=== PATIENT | male | born 1990 | race Caucasian/White ===

== ENCOUNTER 2019-07-02 14:53 | Emergency (ER) | payer MEDICAID ==
[~2019-07-02] VITALS: Ht 187 cm; Wt 77.6 kg
[~2019-07-02 14:53] MED LIST: ACET-1697 PO; ADAL10SY SQ; AMX500CIP PO; ASACOL PR; AZAT50TA16 PO; CANASA EXT; CIME200T15 PO; CLIN45GE5 EXT; CLIN60GE TP; CPR500T PO; CYCL10TA9 PO; DICY10CA26 PO; FAMO40TA39 PO; FISH OIL; HUMIRA; HYDR-2890 PO; HYDR-34 PO; HYOS0.1217 PO; IRON; MELA10CA PO; MELA1TAB11 PO; MELA1TAB27 PO; MESA1.2T PO; MESA250C PO; MESA800T PO; METR500T PO; MINO100C6 PO; MINO50CA2 PO; MSL400TEC PO; MTR500T PO; MULT-963 PO; MULT-974 PO; NF-CLIN1% TOP; NF-ESOM40C PO; ONDA-42 SL; ONDA8TAB13 PO; ONDA8TAB9 PO; OXYC10TA7 PO; OXYC15TA73 PO; OXYC15TA79 PO; OXYC1TAB25 PO; OXYC20TA14 PO; OXYC20TA63 PO; OXYC40TA49 PO; PNT40TEC PO; PRD10T PO; PRD20T PO; PRM25T PO; PROM12.565 RC; QUET100T32 PO; QUET50TA PO; ST JOHNS WORT; SULF1TAB7 PO; TAZORAC EXT; TAZORAC TOP; TUMERIC; [UNRECOGNIZED DRUG - OTHER]
--- NOTE | 2019-07-02 15:19 | NUR ---
PATIENT REFUSING IV, BLOOD DRAW AND FURTHER TREATMENT AT THIS TIME. PHYSICIAN NOTIFIED.
--- NOTE | 2019-07-02 15:19 | ED Abdominal Pain ---
General Stated Complaint: RECTAL BLEEDING History of Present Illness Date Seen by Provider: Jul 02, 2019 Time Seen by Provider: 15:09 Initial Comments 29-year-old male presents with "rectal bleeding" unsure of how long he has actually been having rectal bleeding. Patient himself does not provide any of the history of present illness or we'll review of systems because he "into much pain" patient has a history of ulcerative colitis since had his colon removed. Patient has a ostomy bag in the right lower quadrant. However reports that he is having rectal bleeding. Patient has chronic abdominal pain. Patient's mom states that she thinks he has a "pelvic abscess." Patient is also been having "sexual hallucinations" however this was not elaborated on. Patient has not seen his physician for at least 2 years. Mom reports that he started living back with her 2 weeks ago and that he has been having all these issues for at least the last 2 weeks and maybe longer. Allergies and Home Medications Allergies Coded Allergies: prednisone (Unverified Allergy, Severe, SWELLING SOA, 06/19/14) methylprednisolone (Verified Allergy, Mild, 07/06/14) levofloxacin (Verified Allergy, Unknown, 07/06/14) ADDED-07/06/14 morphine (Unverified Adverse Reaction, Intermediate, HEADACHE, 06/19/14) Home Medications Acetaminophen 500 Mg Tablet, 1,000 MG PO TID PRN for PAIN, (Reported) take 2 (500 mg) tablets Cimetidine 200 Mg Tablet, 200 MG PO BID PRN for stomach upset, (Reported) Clindamycin Phos 60 Ml Lotion, 1 APPLIC TOP BID, (Reported) Mesalamine 250 Mg Capsule.er, 500 MG PO BID, (Reported) take 2 (250 mg) tablets Multivitamin 1 Each Tablet, 1 EACH PO DAILY, (Reported) Ondansetron Hcl 8 Mg/Tab Tab.rapdis, 8 MG PO Q4H PRN for NAUSEA/VOMITING, (Reported) Oxycodone HCl 10 Mg Tablet, 10 MG PO BID, (Reported) Oxycodone HCl 15 Mg Tab.er.12h, 30 MG PO BID, (Reported) Pyridoxine/Melatonin 1 Tab Tablet, 3 MG PO HS, (Reported) Quetiapine Fumarate 100 Mg Tablet, 100 MG PO HS, (Reported) Patient Home Medication List Home Medication List Reviewed: Yes Review of Systems Review of Systems Constitutional: see HPI EENTM: No Symptoms Reported Respiratory: Denies Cough Cardiovascular: Denies Chest Pain Gastrointestinal: See HPI Musculoskeletal: no symptoms reported Psychiatric/Neurological: See HPI Past Sfkknun-Twsdww-Mlbyne Hx Past Med/Social Hx: Reviewed Nursing Past Med/Soc Hx Immunizations Up To Date Tetanus Booster (TDap): More than 5yrs Date of Influenza Vaccine: May 25, 2014 Seasonal Allergies Seasonal Allergies: No Past Medical History Abdominal, Appendectomy, Bowel Surgery, Orthopedic Reproductive Disorders: No Sexually Transmitted Disease: No HIV/AIDS: No Crohns Disease Loss of Vision: Denies Hearing Impairment: Denies Sleep Difficulties Adverse Reaction/Blood Tranf: No Family Medical History Family history: Arthritis 03 MOTHER (fibra myalgia) Family history: Cardiovascular disease 03 FATHER (heart mirmur) Family history: Diabetes mellitus 09 BROTHER (brother has really low & high blood sugars) History of - respiratory disease 03 MOTHER (emphasemia) Heart Disease, COPD, Diabetes Physical Exam Vital Signs Vital Signs - First Documented 07/02/19 15:05 Pulse 98 Resp 18 B/P (MAP) 129/102 (111) Pulse Ox 93 Capillary Refill : Height/Weight/BMI Height: 6'1" Weight: 165lbs. 7.0oz. 74.193690rl; 21.77 BMI Method:Stated General Appearance: no apparent distress Respiratory: chest non-tender, lungs clear, normal breath sounds Cardiovascular: normal peripheral pulses, regular rate, rhythm Gastrointestinal: other (patient with an ostomy bag in the right lower quadrant, tenderness to palpation in bilateral lower quadrant, patient refusing rectal exam) Neurologic/Psychiatric: eap counselor II-XII nml as tested, no motor/sensory deficits, normal mood/affect, oriented x 3 Skin: warm/dry Focused Exam Lactate Level 07/02/19 15:30: Lactic Acid Level 1.03 Lactic Acid Level Laboratory Tests Test 07/02/19 15:30 Lactic Acid Level 1.03 MMOL/L (0.50-2.00) Progress/Results/Core Measures Results/Orders Lab Results Laboratory Tests Test 07/02/19 15:30 Range/Units White Blood Count 5.7 4.3-11.0 10^3/uL Red Blood Count 6.01 H 4.35-5.85 10^6/uL Hemoglobin 16.3 13.3-17.7 G/DL Hematocrit 47 40-54 % Mean Corpuscular Volume 79 L 80-99 FL Mean Corpuscular Hemoglobin 27 25-34 PG Mean Corpuscular Hemoglobin Concent 35 32-36 G/DL Red Cell Distribution Width 15.5 H 10.0-14.5 % Platelet Count 305 130-400 10^3/uL Mean Platelet Volume 11.2 H 7.4-10.4 FL Neutrophils (%) (Auto) 58 42-75 % Lymphocytes (%) (Auto) 31 12-44 % Monocytes (%) (Auto) 10 0-12 % Eosinophils (%) (Auto) 1 0-10 % Basophils (%) (Auto) 1 0-10 % Neutrophils # (Auto) 3.3 1.8-7.8 X 10^3 Lymphocytes # (Auto) 1.8 1.0-4.0 X 10^3 Monocytes # (Auto) 0.5 0.0-1.0 X 10^3 Eosinophils # (Auto) 0.0 0.0-0.3 10^3/uL Basophils # (Auto) 0.0 0.0-0.1 10^3/uL Erythrocyte Sedimentation Rate 12 0-15 MM/HR Prothrombin Time 13.7 12.2-14.7 SEC INR Comment 1.0 0.8-1.4 Sodium Level 142 135-145 MMOL/L Potassium Level 3.9 3.6-5.0 MMOL/L Chloride Level 107 98-107 MMOL/L Carbon Dioxide Level 23 21-32 MMOL/L Anion Gap 12 5-14 MMOL/L Blood Urea Nitrogen 17 7-18 MG/DL Creatinine 1.13 0.60-1.30 MG/DL Estimat Glomerular Filtration Rate > 60 BUN/Creatinine Ratio 15 Glucose Level 92 70-105 MG/DL Lactic Acid Level 1.03 0.50-2.00 MMOL/L Calcium Level 10.0 8.5-10.1 MG/DL Corrected Calcium 8.5-10.1 MG/DL Total Bilirubin 1.6 H 0.1-1.0 MG/DL Aspartate Amino Transf (AST/SGOT) 17 5-34 U/L Alanine Aminotransferase (ALT/SGPT) 13 0-55 U/L Alkaline Phosphatase 76 40-136 U/L C-Reactive Protein High Sensitivity 0.05 0.00-0.50 MG/DL Total Protein 7.9 6.4-8.2 GM/DL Albumin 4.8 H 3.2-4.5 GM/DL My Orders Orders - HAYLEY ROBINS Nimco DO Acute Abd Series (07/02/19 ) Cbc With Automated Diff (07/02/19 15:10) Comprehensive Metabolic Panel (07/02/19 15:10) Hs C Reactive Protein (07/02/19 15:10) Erythrocyte Sedimentation Rate (07/02/19 15:10) Drug Screen Stat (Urine) (07/02/19 15:10) Lactic Acid Analyzer (07/02/19 15:10) Protime With Inr (07/02/19 15:10) Ua Culture If Indicated (07/02/19 15:10) Ct Abdomen/Pelvis W (07/02/19 16:31) Ketorolac Injection (Toradol Injection) (07/02/19 16:45) Iohexol Injection (Omnipaque 350 Mg/Ml 1 (07/02/19 16:45) Received Contrast (Hold Metformin- Contr (07/02/19 16:45) Sodium Chloride Flush (Catheter Flush Sy (07/02/19 16:45) Ns (Ivpb) (Sodium Chloride 0.9% Ivpb Bag (07/02/19 16:45) Medications Given in ED Current Medications Medications Dose Ordered Sig/Laila Route Start Time Stop Time Status Last Admin Dose Admin Iohexol 100 ml ONCE ONCE IV 07/02/19 16:45 07/02/19 16:46 DC 07/02/19 17:01 88 ML Ketorolac Tromethamine 15 mg ONCE ONCE IVP 07/02/19 16:45 07/02/19 16:46 DC 07/02/19 16:42 15 MG Sodium Chloride 10 ml NEEDED PRN IV 07/02/19 16:45 07/02/19 17:01 10 ML Sodium Chloride 100 ml ONCE ONCE IV 07/02/19 16:45 07/02/19 16:46 DC 07/02/19 17:01 80 ML Vital Signs/I&O 07/02/19 15:05 Pulse 98 Resp 18 B/P (MAP) 129/102 (111) Pulse Ox 93 Progress Progress Note : Time: 17:25 Progress Note Patient refused rectal exam, patient also refused to give us a urine sample. Patient has no acute findings on CT exam, x-ray or labs. Patient will need to follow-up with his primary care provider for further evaluation along with any medication needed for his chronic pain or his symptoms. Patient is stable and di scharged home in stable condition Departure Impression Primary Impression: Chronic abdominal pain Disposition: HOME, SELF-CARE Condition: Stable Departure-Patient Inst. Referrals: YEYO CONTRERAS DO (PCP/Family) Primary Care Physician Patient Instructions: Chronic Pain Add. Discharge Instructions: Follow-up with your primary care physician for further evaluation and continuation of care HAYLEY ROBINS DO Jul 02, 2019 15:19 POS
[2019-07-02 15:42] LABS: BASOPHILS % (AUTO) 1 % (0-10); EOSINOPHILS % (AUTO) 1 % (0-10); HEMATOCRIT 47 % (40-54); HEMOGLOBIN 16.3 G/DL (13.3-17.7); LYMPHOCYTES # (AUTO) 1.8 X 10^3 (1.0-4.0); LYMPHOCYTES % (AUTO) 31 % (12-44); MEAN CORPUSCULAR HEMOGLOBIN 27 PG (25-34); MEAN CORPUSCULAR HGB CONC 35 G/DL (32-36); MEAN CORPUSCULAR VOLUME 79 FL (80-99); MEAN PLATELET VOLUME 11.2 FL (7.4-10.4); MONOCYTES # (AUTO) 0.5 X 10^3 (0.0-1.0); MONOCYTES % (AUTO) 10 % (0-12); NEUTROPHILS # (AUTO) 3.3 X 10^3 (1.8-7.8); NEUTROPHILS % (AUTO) 58 % (42-75); PLATELET COUNT 305 10^3/uL (130-400); RED CELL DISTRIBUTION WIDTH 15.5 % (10.0-14.5); WHITE BLOOD COUNT 5.7 10^3/uL (4.3-11.0)
[2019-07-02 16:02] LABS: PROTHROMBIN TIME PATIENT 13.7 SEC (12.2-14.7)
[2019-07-02 16:14] LABS: ALANINE AMINOTRANSFERASE 13 U/L (0-55); ALBUMIN 4.8 GM/DL (3.2-4.5); ALKALINE PHOSPHATASE 76 U/L (40-136); BILIRUBIN,TOTAL 1.6 MG/DL (0.1-1.0); BUN/CREATININE RATIO 15; CARBON DIOXIDE 23 MMOL/L (21-32); CHLORIDE 107 MMOL/L (98-107); CREATININE SERUM 1.13 MG/DL (0.60-1.30); GFR ESTIMATED > 60; GLUCOSE 92 MG/DL (70-105); POTASSIUM 3.9 MMOL/L (3.6-5.0); SODIUM 142 MMOL/L (135-145); TOTAL PROTEIN 7.9 GM/DL (6.4-8.2)
--- NOTE | 2019-07-02 16:24 | Diagnostic Imaging Report ---
INDICATION: Rectal bleeding. Abdominal series performed in the routine fashion and compared to 11/13/2015. Frontal chest obtained with supine and upright abdominal films. Heart and mediastinal silhouette are normal in appearance. Lungs are clear. There is no pneumothorax or pleural fluid. There is no free intraperitoneal air on the upright view. Spinal stimulator device is in place with leads overlying the T11 through L1 levels. Abdominal bowel gas pattern is unremarkable. There is an ostomy in the right lower quadrant. There are phleboliths in the pelvis. IMPRESSION: No sign of free air or bowel obstruction. No acute process in the chest. Dictated by: Dictated on workstation # [id number]
[2019-07-02 16:31] LABS: ERYTHROCYTE SEDIMENTATION RATE 12 MM/HR (0-15)
[2019-07-02] MEDS ORDERED: HOLD METFORMIN - RECEIVED CONTRAST 20 ML VIAL IV SCH (16:45)
[2019-07-02] MEDS ORDERED: KETOROLAC 15 MG/ML VIAL IVP ONE (16:45)
[2019-07-02] MEDS ORDERED: NS 100 ML (IVPB) BAG IV ONE (16:45)
[2019-07-02] MEDS ORDERED: IOHEXOL 350 MG/ML 100 ML (OMNIPAQUE 350) VIAL IV ONE (16:45)
[2019-07-02] MEDS ORDERED: CATHETER FLUSH 10 ML SYR IV PRN (16:45)
--- NOTE | 2019-07-02 17:18 | Diagnostic Imaging Report ---
PROCEDURE: CT abdomen and pelvis with contrast. TECHNIQUE: Multiple contiguous axial images were obtained through the abdomen and pelvis after administration of intravenous contrast. Auto Exposure Controls were utilized during the CT exam to meet ALARA standards for radiation dose reduction. INDICATION: Difficulty urinating. Groin pain. No history of cancer. COMPARISON: 11/13/2015 FINDINGS: The heart is unremarkable. The included lung bases are clear. Stable colectomy changes are seen with ostomy in the right hemiabdomen. A few nondilated fluid-filled loops of small bowel are seen in the left hemiabdomen. There is bowel wall thickening of the rectal stump. No free fluid or free air is seen in the abdomen and pelvis. The liver, spleen, pancreas, adrenal glands, and kidneys demonstrate no acute abnormalities. There is no pathologically enlarged mesenteric or retroperitoneal adenopathy. The osseous structures are age-appropriate. Spinal cord stimulator is noted. The urinary bladder is nondistended and has an unremarkable appearance. There is no free air, loculated collection, or adenopathy in the pelvis. IMPRESSION: 1. Nondilated fluid-filled loops of small bowel in the left lower quadrant, which may represent enteritis. 2. Postsurgical changes of colectomy and ostomy in the right hemiabdomen. There is mild bowel wall thickening in the rectal stump, which may be reactive. Recommend correlation with physical exam. No free fluid or free air is seen. 3. Nondilated urinary bladder. No findings to suggest cystitis. Dictated by: Dictated on workstation # [id number]
[2019-07-02 17:30] VITALS: BP 129/102
== END 2019-07-02 17:40 | disposition home or self-care (01) ==
LOC: EDUNIT# 14:53 → ER 14:54
DX: G89.29 Other chronic pain (principal); R10.31 Right lower quadrant pain; R10.32 Left lower quadrant pain; Z88.1 Allergy status to other antibiotic agents; Z88.5 Allergy status to narcotic agent; Z88.8 Allergy status to other drugs, medicaments and biological substances; Z90.49 Acquired absence of other specified parts of digestive tract; Z87.19 Personal history of other diseases of the digestive system; Z82.49 Family history of ischemic heart disease and other diseases of the circulatory system
CPT/HCPCS: 36415; 74022; 74177; 80053; 83605; 85025; 85610; 85652; 86141

== ENCOUNTER 2019-12-12 08:50 | Inpatient (IN) | payer MEDICAID ==
[~2019-12-12] VITALS: Ht 185.5 cm; Wt 90.5 kg
--- OUTSIDE RECORDS SUMMARY | 2019-12-12 08:55 | XMS REPORT | Clinical Summary ---
Author Author [facility] Organization [facility] Address Unknown Phone Unavailable Care Team Providers Care Chief Controller Station Name Role Phone Doctor, Miscellaneous Unavailable Unavailable John Paiz MD Unavailable Gladys Mclaughlin RN Unavailable Unavailable Selene Armas DO Unavailable Angelito West DO Unavailable Holden Barcenas MD Unavailable Melissa Weinstein RN Unavailable Unavailable Sharmaine Hammer ENTRY LEVEL DRAFTER-JAVA PROGRAMMER ANALYST Unavailable [phone] Job Hedrick RN Unavailable Unavailable Gayle Patel MD Unavailable Zo Lezama Unavailable Unavailable Veena Howe DO Unavailable Nelly Antonio MD Unavailable Catarino Elizabeth MD Unavailable Unavailable Nicky Gao RN Unavailable Antoni Baumann MD Unavailable [phone] Carlyn Israel DO PCP Soham West RN Unavailable Unavailable Manuel Waite MD Unavailable Serenity Sofia Unavailable Unavailable Source Comments Some departments are not documenting in the electronic medical record. If you d o not see the information that you expected, contact Release of Information in [facility] Information Management department at [phone] for further assistan ce in locating additional records.[facility] Allergies Comments Active Allergy Reactions Severity Noted Date Iron Dextran ANAPHYLAXIS High 06/23/2014 Redness and soreness to iv site with administration Levofloxacin RASH 07/07/2014 Patient tolerates hydrocodone and oxycodone. Patient has also tolerated hydromorphone IV and PO Morphine HEADACHE Low 12/22/2012 Prednisone SHORTNESS OF High 02/06/2014 BREATH, STOMACH UPSET, EDEMA SOB, abdominal pain, swelling Methylprednisolone Sodium SEE COMMENTS 07/07/2014 Succ Medications End Date Status Medication Sig Dispensed Refills Start Date Active tazorotene (TAZORAC) 0.05 Apply to 0 % topical cream affected area at bedtime daily. Active vitamins, multiple cap Take 1 Cap by 0 mouth daily. Active melatonin 3 mg tab Take 3 mg by 0 mouth at bedtime daily. Active QUEtiapine (SEROQUEL) 100 Take 1 Tab by 14 Tab 0 mg tablet mouth at 5 bedtime daily. Active oxycodone(+) (DAZIDOX) 20 Take 10 mg by 0 mg tablet mouth every 4 hours as needed pt says taking oxycodone 10 mg tid and oxycontin 30mg bid Active adalimumab(+) (HUMIRA Inject 160 mg 6 Syringe 0 PEN) 40 mg/0.8 mL (4 pens) on 5 injection penIndications: day 1, then Crohn's disease with 80 mg (day fistula, unspecified 15). gastrointestinal tract location (HCC) Active adalimumab(+) (HUMIRA Inject 40 mg 2 Syringe 2 PEN) 40 mg/0.8 mL into area(s) 6 injection penIndications: as directed Crohn's disease with every 14 fistula, unspecified days. gastrointestinal tract location (HCC) Active ondansetron (ZOFRAN ODT) TAKE ONE 30 Tab 1 0 8 mg rapid dissolve TABLET BY 6 tablet MOUTH EVERY 8 HOURS NEEDED FOR NAUSEA Active azaTHIOprine (IMURAN) 50 TAKE 3 TABS 90 Tab 2 0 mg tablet BY MOUTH 7 DAILY. Active Ostomy Supplies Use 1 each as 99 each 11 03/09/20 1 miscIndications: Crohn's directed as 9 colitis, unspecified Needed. 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 Ulcerative colitis 12/24/2012 Abdominal pain, other specified site 12/22/2012 Encounters Care Team Description Date Type Specialty Monalisa Jimenes 10/22/2019 Documentation Oncology from Last 3 Months Immunizations Name Administration Dates Next Due Flu Vaccine Quadrivalent 07/07/2014 =>3 Yo (Preservative Free) Flu Vaccine Trivalent =>3 05/09/2015 Yo (Preservative Free) Pneumococcal Vaccine 05/09/2015 (23-Leora Adult) Family History Medical History Relation Name Comments Arthritis-rheumatoid Maternal Aunt Cancer Maternal Aunt Seizures Maternal Aunt Diabetes Maternal Grandfather Heart Failure Maternal Grandfather Hypertension Maternal Grandfather Stroke Maternal Grandfather Cancer Maternal Grandmother Asthma Mother Fibromyalgia Mother High Cholesterol Mother Relation Name Status Comments Maternal Aunt Maternal Grandfather Maternal Grandmother Mother Social History Date Tobacco Use Types Packs/Day Years Used Never Smoker Smokeless Tobacco: Never Used Drinks/Week oz/Week Comments Alcohol Use No Sex Assigned at Date Recorded Not on file Industry Job Start Date Occupation Not on file Not on file Not on file Travel End Travel History Travel Start No recent travel history available. Last Filed Vital Signs Reading Time Taken Comments Vital Sign 150/93 02/21/2017 10:57 AM CDT Blood Pressure 117 02/21/2017 10:57 AM CDT Pulse 36.7 C (98 F) 02/21/2017 10:57 AM CDT Temperature 16 02/21/2017 10:57 AM CDT Respiratory Rate 98% 02/21/2017 10:57 AM CDT Oxygen Saturation - - Inhaled Oxygen Concentration 90 kg (198 lb 6.4 oz) 02/21/2017 10:57 AM CDT Weight 186.7 cm (6' 1.5") 02/21/2017 10:57 AM CDT Height 25.82 02/21/2017 10:57 AM CDT Body Mass Index Plan of Treatment Health Maintenance Due Date Last Done Comments DTAP/TDAP VACCINES (1 - 2006 Tdap) PHYSICAL (COMPREHENSIVE) 2006 EXAM INFLUENZA VACCINE 03/25/2020 05/09/2015, 07/07/2014 HEPATITIS C SCREENING Completed 12/30/2012 HIV SCREENING Completed 02/06/2014 Results Not on filefrom Last 3 Months Additional Health Concerns Resolved Time Infection Noted Time ESBL 08/26/2014 10:06 AM 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 08/08/2014 6:51 PM Full Code 08/08/2014 4:11 PM Provider has discussed Code Status No, more discussi on w/Patient or Family? needed 07/13/2014 6:50 PM Full Code 07/07/2014 2:40 AM Provider has discussed Code Status Yes w/Patient or Family? 07/07/2014 2:40 AM Full Code 07/07/2014 2:19 AM Provider has discussed Code Status No, more discussi on w/Patient or Family? needed 06/24/2014 7:54 PM Full Code 06/20/2014 9:36 PM Provider has discussed Code Status Yes w/Patient or Family?
--- OUTSIDE RECORDS SUMMARY | 2019-12-12 08:55 | XMS REPORT | Encounter Summary ---
Author Author [facility] Organization [facility] Address Unknown Phone Unavailable Care Team Providers Care Spray Cementer Name Role Phone Doctor, Miscellaneous Unavailable Unavailable John Paiz MD Unavailable Gladys Mclaughlin RN Unavailable Unavailable Selene Armas DO Unavailable Angelito West DO Unavailable Holden Barcenas MD Unavailable Melissa Weinstein RN Unavailable Unavailable Sharmaine Hammer WRINGER MACHINE OPERATOR-OUTPATIENT DIETITIAN Unavailable Job Hedrick RN Unavailable Unavailable Gayle Patel MD Unavailable Zo Lezama Unavailable Unavailable Veena Howe DO Unavailable Nelly Antonio MD Unavailable Catarino Elizabeth MD Unavailable Unavailable Nicky Gao RN Unavailable Antoni Baumann MD Unavailable [phone] Carlyn Israel DO PCP Soham West RN Unavailable Unavailable Manuel Waite MD Unavailable Serenity Sofia Unavailable Unavailable Reason for Visit * Reason Comments General Question mom calling w concern Encounter Details Care Team Description Date Type Department Angelito West DO [address] [place] [address] General Question (mom calling w concern) 07/01/2019 Telephone [facility] [place] [address] Social History Date Tobacco Use Types Packs/Day Years Used Never Smoker Smokeless Tobacco: Never Used Drinks/Week oz/Week Comments Alcohol Use No Sex Assigned at Date Recorded Not on file Industry Job Start Date Occupation Not on file Not on file Not on file Travel End Travel History Travel Start No recent travel history available. documented as of this encounter Functional Status Date of Assessment Functional Status Response 07/13/2014 Does the patient have a hearing impairment: No 07/13/2014 Does the patient have a visual impairment: No 07/13/2014 Does the patient have impaired ambulation: No 07/13/2014 Does the patient have an activity of daily living No (ADL) impairment: 07/13/2014 Does the patient have an instrumental activity of No daily living (IADL) impairment: Date of Assessment Cognitive Status Response 07/13/2014 Does the patient have a cognitive impairment: No documented as of this encounter Miscellaneous Notes * Telephone Encounter - Tatiana Franklin RN - 07/01/2019 4:04 PM WARP PREPARER This pt mom called today, her cell is [phone]. She said Ferny has not bee n back to see Dr. West since 01/2017. She said he is bleeding out of his rect um and is hallucinating and is afraid he has an infection. She does not know if he still has [place] Medicaid or any coverage at this time. She said they are living in [place] now with her Aunt Nayeli. Her Aunt Nayeli's home PH: [phone]. She is going to take Ferny into urgent care tomorrow to be seen. She wanted Dr. Angelina mejia to be aware. She was asking if there was something he should be doing at th is time. I told her per Dr. West's last note, he needed to follow up w [facility] doctor and then return to clinic after colonoscopy. She said he never did this and has been lost to follow up. I told her at this point for us to give him any direction with care, he'd have to return to clinic to be seen. I asked her to f ind out if he still had [place] medicaid or not. I told her to let me know if he needed to return to clinic to be seen after seei urgent care tomorrow. She said he does not have a GI doc or a PCP at this kaila e. She said she would call me back if they needed to return to clinic. I told he r if he's having a lot of concerning bleeding he needs to go to the ER. She said she'd call me back if wanting to make an appt. PREPARER documented in this encounter Plan of Treatment Not on filedocumented as of this encounter Visit Diagnoses Not on filedocumented in this encounter Additional Health Concerns Resolved Time Infection Noted Time ESBL 08/26/2014 10:06 AM WARP PREPARER documented as of this encounter
--- OUTSIDE RECORDS SUMMARY | 2019-12-12 08:55 | XMS REPORT | Encounter Summary ---
Author Author [facility] Organization [facility] Address Unknown Phone Unavailable Care Team Providers Care Quality Control Operator Name Role Phone Doctor, Miscellaneous Unavailable Unavailable John Paiz MD Unavailable Gladys Mclaughlin RN Unavailable Unavailable Selene Armas DO Unavailable Angelito West DO Unavailable Holden Barcenas MD Unavailable Melissa Weinstein RN Unavailable Unavailable Sharmaine Hammer LAW REPORTER-MARKETING SERVICES COORDINATOR Unavailable Job Hedrick RN Unavailable Unavailable Gayle Patel MD Unavailable Zo Lezama Unavailable Unavailable Veena Howe DO Unavailable Nelly Antonio MD Unavailable Catarino Elizabeth MD Unavailable Unavailable Nicky Gao RN Unavailable Antoni Baumann MD Unavailable [phone] Carlyn Israel DO PCP Soham West RN Unavailable Unavailable Manuel Waite MD Unavailable Serenity Sofia Unavailable Unavailable Encounter Details Care Team Description Date Type Department Monalisa Jimenes 10/22/2019 Documentation [facility] [address] [address] Social History Date Tobacco Use Types Packs/Day [...] impairment: No documented as of this encounter Progress Notes * Monalisa Jimenes - 10/22/2019 9:07 AM RADIO ELECTRONICS TECHNICIAN SW received ostomy order from [facility]. Dr. West signed, [place] faxed up dated ostomy supply order back to [facility]: [phone], fax [phone]. Monalisa Jimenes LMSW O ELECTRONICS TECHNICIAN documented in this encounter Plan of Treatment Not on filedocumented as of this encounter Visit Diagnoses Not on filedocumented in this encounter Additional Health Concerns Resolved Time Infection Noted Time ESBL 08/26/2014 10:06 AM RADIO ELECTRONICS TECHNICIAN documented as of this encounter
--- OUTSIDE RECORDS SUMMARY | 2019-12-12 08:55 | XMS REPORT ---
Author Author Quarterly. Organization [employer] Address [address] [address] Care Team Providers Care Knife Grinder Name Role Phone MADL, JON Unavailable Unavailable MAYRA KLEIN Unavailable Unavailable CONTRERAS, YEYO Unavailable Unavailable MIKEALEX REMIGIO Dasha Unavailable Migration, Doctor Unavailable Unavailable MADL, JON Unavailable MADL, JON Unavailable MADL, JON Unavailable JonoNatali HARISH Unavailable CONTRERAS, YEYO Unavailable MADL, JON Unavailable MADL, JON Unavailable MADL, JON Unavailable MADL, JON Unavailable LEISURELUCITA Unavailable Unavailable BROWN, RAMIREZ Unavailable Unavailable BROWN, RAMIREZ Unavailable Unavailable HAYLEY ROBINS DO L Unavailable Unavailable SEAN KIM Unavailable Unavailable SEAN KIM Unavailable Unavailable SEAN KIM Unavailable Unavailable Allergies Normalized Allergy Reported Date of Reaction(s) Care Provider Facility Allergy Type classification allergen Allergy Onset Drug Allergy Opioid Morphine 06-19-2014 - HEADACHE SARAN GUPTA Via (3 sources.) Agonists DO [facility] ([address]) no information Unclassified NO KNOWN DRUG UNKNOWN [facility] (5 sources.) ALLERGIES LEISURE [address] ([address]) Medications Medication Ingredient Drug Dose Dates Status Sig Sig Care Class(es) (Normalized) (Original) Provid er no Normal no 05-26-20 no no no no information saline information 19 - informat information infor mation name (1 source.) 06-10-20 ion (no 19 phone) Problems Problem Normalized Date of Normalized Normalized Provider Fac ility Classification Problem(s) Problem Problem Problem Sta tus Onset/Resoluti Duration on Residual Acquired Episodic Active [facility] ROB[facility] , [facility] Via codes; absence of DO [place] unclassified other Hospital - (2 sources.) specified [place] parts of ([address]) digestive tract Allergic Allergy status Episodic Active [facility]AYLEY ROBINS , [facility] Via reactions (6 to other DO Susana sources.) antibiotic Hospital - agents status [place] Translations: ([address]) [ ALLERGY STATUS TO NARCOTIC AGENT STATUS, ALLERGY STATUS TO OTH DRUG/MEDS/BIOL SUB] Fluid and Dehydration Episodic Active [facility] electrolyte Translations: [facility]IS[facility] o f disorders (12 [ DEHYDRATION] [place] sources.) [facility] ([address]) Residual Family history Episodic Active [facility]AYLEY ROBINS , [facility] Via codes; of ischemic DO [facility] unclassified heart disease Hospital - (2 sources.) and other [place] diseases of ([address]) the circulatory system Other nervous Other chronic Chronic Active [facility]AYLEY ROBINS , [facility] Via system pain DO [place] disorders (4 Hospital - sources.) [place] ([address]) 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 sources.) 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, 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 Translations: [ OTHER, MIXED, OR UNSPECIFIED DRUG ABUSE, UNSPECIFIED USE] Other Personal Episodic Active [facility]AYLEY ROBINS , [facility] Via gastrointestin history of DO Susana al disorders other diseases Hospital - (2 sources.) of the [place] digestive ([address]) system Procedures The data below is from unstructured sources Procedure Date Ordered R esult Body Site VISIT November 17, 2014 No Known procedures Immunizations Normalized Immunization Date Notes Care Provider Facili ty Immunization influenza, seasonal, 05-09-2015 no information no name No t Available injectable, (41755) preservative free pneumococcal 05-09-2015 no information no name Not Availa ble polysaccharide (00290) vaccine, 23 valent Results Test Name Value Interpretation Reference Range Date Time Fa cility (Normalized) (Normalized) (Medline Reference) No panel information on 2019-05-26 Albumin BCG dye 4.3 (no code) 05-26-2019 Hospital [Mass/Vol] 18:09-0400 [facility] ([id number]) ALP [Catalytic 64 U/L (no code) 44 - 147 U/L 05-26-2019 Hosp ital activity/Vol] 18:09-0400 [facility] (83612) ALT [Catalytic 15 U/L (no code) 4 - 40 U/L 05-26-2019 Hospit al activity/Vol] 18:040 [facility] (75870) Amphetamines Ql no information (no code) 05-26-2019 Hospita l (U) 18:040 [facility] (04352) Anion gap 18 mmol/L (H) 3 - 11 mmol/L 05-26-2019 Hospital [Moles/Vol] 18:040 [facility] (24148) AST [Catalytic 24 U/L (no code) 10 - 34 U/L 05-26-2019 Hospi kamila activity/Vol] 18:040 [facility] (14256) Bacteria LM Ql Trace (A) 05-26-2019 Hospital (Urine sed) 18: [facility] (74354) Barbiturates no information (no code) 05-26-2019 Hospital Screen Ql (U) 18:0400 [facility] (02588) Basophils (Bld) 0.0 10*3/uL (no code) 0 - 0.3 10*3/uL 05-26-2019 Hospital [#/Vol] 18:090400 [facility] (42869) Basophils/100 0.20 % (no code) 0.5 - 1 % 05-26-2019 Hospital WBC (Bld) 18: [facility] (31761) Benzodiazepine no information (no code) 05-26-2019 Hospital metabolites 18:0400 [facility] Screen Ql (U) [facility] (10214) Bilirubin 1.5 mg/dL (H) 0.1 - 1.2 mg/dL 05-26-2019 Hospit al [Mass/Vol] 18:040 [facility] (51074) Bilirubin N/A (A) 05-26-2019 Hospital Confirm Ql (U) 18: [facility] (72303) Bilirubin Ql (U) no information (no code) 05-26-2019 Hospit al 18: [facility] (06399) Calcium 10.5 mg/dL (H) 8.5 - 10.2 mg/dL 05-26-2019 Hosp ital [Mass/Vol] 18: [facility] (90535) Carboxy no information (AA) 05-26-2019 Hospital tetrahydrocannab 18: [facility] inol Ql (U) [facility] (27146) Casts LM Ql Few Hyaline (no code) 05-26-2019 Hospital (Urine sed) 18: [facility] (16297) Chloride 114 mmol/L (no code) 95 - 106 mmol/L 05-26-2019 Hospi kamila [Moles/Vol] 18: [facility] (84001) CK [Catalytic 105 U/L (no code) 05-26-2019 Hospital activity/Vol] 18: [facility] (16722) CK.MB [Mass/Vol] 1.0 ng/mL (no code) 0 - 4.3 ng/mL 05-26-2019 H ospital 18: [facility] (21806) Clarity (U) Slightly Cloudy (A) 05-26-2019 Hospital 18: [facility] (31248) Cocaine Ql (U) no information (no code) 05-26-2019 Hospital 18: [facility] (17912) Color (U) Dk Yellow (A) 05-26-2019 Hospital 18: [facility] (22066) Creatinine 1.19 mg/dL (no code) 05-26-2019 Hospital [Mass/Vol] 18: [facility] (10604) Eosinophils 0.0 10*3/uL (no code) 0.05 - 0.5 05-26-2019 Hospita l (Bld) [#/Vol] 10*3/uL 18: [facility] (54110) Eosinophils/100 0.7 % (no code) 1 - 4 % 05-26-2019 Hospit al WBC (Bld) 18: [facility] (36754) Epithelial 0-5/HPF (A) 05-26-2019 Hospital cells.squamous 18: [facility] LM.HPF (Urine [facility] sed) [#/Area] (74663) Erythrocyte 14.6 % (no code) 11.6 - 14.6 % 05-26-2019 Hospit al distribution 18: [facility] width (RBC) [facility] [Ratio] (28930) Ethanol Ql (U) <10.00 (L) 05-26-2019 Hospital 18:040 [facility] (07377) GFR/1.73 sq 71 (no code) 90 - 120 05-26-2019 Hospital M.predicted MDRD mL/min/{1.73_m2} mL/min/{1.73_m2} 18: [facility] (S/P/Bld) [Vol [facility] rate/Area] (56477) Globulin (S) 3.7 g/dL (H) 2 - 3.5 g/dL 05-26-2019 Hospit al [Mass/Vol] 18: [facility] (85613) Glucose 113 mg/dL (H) 60 - 125 mg/dL 05-26-2019 Hospita l [Mass/Vol] 18:0400 [facility] (33670) Glucose Test no information (no code) 05-26-2019 Hospital strip (U) 18: [facility] [Mass/Vol] [facility] (96296) HCO3 (P) 15 (L) 05-26-2019 Hospital [Moles/Vol] 18:040 [facility] (62368) Hematocrit (Bld) 44.7 % (no code) 36.1 - 50.3 % 05-26-2019 H ospital [Volume 18: [facility] fraction] [facility] (43881) Hemoglobin (Bld) 15.3 g/dL (no code) 12.1 - 17.2 g/dL 05-26-2019 Hospital [Mass/Vol] 18:040 [facility] (99712) Hemoglobin Ql no information (no code) 05-26-2019 Hospital (U) 18:240400 [facility] (74015) Ketones (U) no information (no code) 05-26-2019 Hospital [Mass/Vol] 18:24-0400 [facility] (05921) Leukocyte no information (no code) 05-26-2019 Hospital esterase Test 18:240400 [facility] strip Ql (U) [facility] (79277) Lymphocytes 1.30 10*3/uL (no code) 0.9 - 2.9 05-26-2019 Hospita l (Bld) [#/Vol] 10*3/uL 18:040 [facility] (71669) Lymphocytes/100 22.2 % (no code) 20 - 40 % 05-26-2019 Hospit al WBC (Bld) 18:040 [facility] (44108) MCH (RBC) 27.8 pg (no code) 27 - 31 pg 05-26-2019 Hospital [Entitic mass] 18:090400 [facility] (80851) MCHC (RBC) 34.2 g/dL (no code) 32 - 36 g/dL 05-26-2019 Hospital [Mass/Vol] 18:09-0400 [facility] (66108) MCV (RBC) 81.3 fL (no code) 80 - 100 fL 05-26-2019 Hospital [Entitic vol] 18:0400 [facility] (70785) Methylenedioxyme no information (no code) 05-26-2019 Hospit al thamphetamine 18:0400 [facility] Screen Ql (U) [facility] (77385) Monocytes (Bld) 0.5 10*3/uL (no code) 0.3 - 0.9 05-26-2019 Hosp ital [#/Vol] 10*3/uL 18:090400 [facility] (41259) Monocytes/100 9.0 % (no code) 2 - 8 % 05-26-2019 Hospital WBC (Bld) 18: [facility] (56995) Mucus Ql (Urine 1+ (A) 05-26-2019 Hospital sed) 18: [facility] (38715) Myoglobin 195.2 ng/mL (H) 05-26-2019 Hospital [Mass/Vol] 18: [facility] (26759) Neutrophils 3.98 10*3/uL (no code) 1.7 - 7 10*3/uL 05-26-2019 H ospital (Bld) [#/Vol] 18: [facility] (11326) Neutrophils/100 67.9 % (no code) 40 - 60 % 05-26-2019 Hospit al WBC (Bld) 18: [facility] (23899) Nitrite Ql (U) no information (no code) 05-26-2019 Hospital 18: [facility] (38615) Opiates Screen no information (no code) 05-26-2019 Hospital Ql (U) 18: [facility] (35679) Osmolality Calc 297 (H) 05-26-2019 Hospital [Osmolality] 18: [facility] (39664) Oxycodone Ql (U) no information (no code) 05-26-2019 Hospit al 18:040 [facility] (68642) pH (U) 5.5 [pH] (no code) 4.6 - 8 [pH] 05-26-2019 Hospital 18: [facility] (10411) Phencyclidine Ql no information (no code) 05-26-2019 Hospit al (U) 18:040 [facility] (74600) Platelet mean 12.2 fL (H) 7.2 - 11.7 fL 05-26-2019 Hosp ital volume (Bld) 18: [facility] [Entitic vol] [facility] (02988) Platelets (Bld) 213 10*3/uL (no code) 150 - 450 05-26-2019 Hosp ital [#/Vol] 10*3/uL 18:0400 [facility] (74230) Potassium 4.2 mmol/L (no code) 3.7 - 5.2 mmol/L 05-26-2019 Hosp ital [Moles/Vol] 18:040 [facility] (16177) Propoxyphene Ql no information (no code) 05-26-2019 Hospita l (U) 18: [facility] (30684) Protein (U) 3+ (A) 05-26-2019 Hospital [Mass/Vol] 18:040 [facility] (05485) Protein 8.0 g/dL (no code) 6.4 - 8.3 g/dL 05-26-2019 Hospita l [Mass/Vol] 18:040 [facility] (40882) RBC (Bld) 5.50 10*6/uL (H) 4.2 - 6.1 05-26-2019 Hospital [#/Vol] 10*6/uL 18: [facility] (48423) RBC LM.HPF no information (no code) 0 - 4 /[HPF] 05-26-2019 Hos pital (Urine sed) 18: [facility] [#/Area] [facility] (44822) Sodium 143 mmol/L (no code) 135 - 145 mmol/L 05-26-2019 Hosp ital [Moles/Vol] 18: [facility] (28390) Specific gravity >=1.030 (A) 05-26-2019 Hospital (U) [Rel 18: [facility] density] [facility] (20500) Tricyclic no information (no code) 05-26-2019 Hospital antidepressants 18: [facility] Ql (U) [facility] (60216) Troponin ng/mL (no code) 0 - 0.4 ng/mL 05-26-2019 Hospital I.cardiac 18: [facility] [Mass/Vol] [facility] (23889) Urea nitrogen 15 mg/dL (no code) 7 - 20 mg/dL 05-26-2019 Hospi kamila [Mass/Vol] 18:09-0400 [facility] (71154) Urine Volume Urine Volume (no code) 05-26-2019 Hospital Sufficient 18:24-0400 [facility] (10mL) [facility] (14649) Urobilinogen Qn 0.2 (A) 05-26-2019 Hospital (U) {Daysi'U}/dL 18:24-0400 [facility] f [facility] (07171) WBC (Bld) 5.86 10*3/uL (no code) 3.5 - 10.5 05-26-2019 Hospital [#/Vol] 10*3/uL 18:090400 [facility] (07442) WBC LM.HPF 0-2/HPF (A) 05-26-2019 Hospital (Urine sed) 18:24-0400 [facility] [#/Area] [facility] (28516) no information Urine Saved if (A) 05-26-2019 Hospital Culture Needed 18:0400 [facility] (48hrs from time [facility] of collection) (18344) Vital Signs No Information Interventions No Information Plan of Treatment No Information Goals No Information Social History The data below is from unstructured sources History Response Recorde d Date/Time Hx Family Cancer N 12/14 7:20pm History Response Recorde d Date/Time Alcohol Use Denies Use 0 02/05/13 12:57am Recreational Drug Use N 02/05/13 12:57am Recent Foreign Travel N 02/05/13 12:57am Recent Infectious Disease Exposure N 02/05/13 12:57am Hospitalization with Isolation Denies 02/05/13 12:57am History Response Recorde d Date/Time Alcohol Use Denies Use 0 12/14/12 7:20pm Recreational Drug Use N 12/14/12 7:20pm Recent Foreign Travel N 12/14/12 7:20pm Recent Infectious Disease Exposure N 12/14/12 7:20pm Hospitalization with Isolation Denies 12/22/12 8:18pm Functional Status No Information Mental Status No Information Encounters Encounter Normalized Encounter Encounter Diagnosis Care Provi alex Organization Date Type 07-02-2019 Emergency department no information no name (no nancy ne) no organization name - patient visit (no phone) 07-02-2019 11-24-2019 Patient encounter no information [facility] (no [facility] - [facility] phone) [facility] nty (no 11-24-2019 phone) 07-02-2019 Patient encounter no information no name (no phone) no organization name procedure (no phone) 05-26-2019 Patient encounter no information no name (no phone) no organization name - procedure (no phone) 05-26-2019 Patient encounter no information no name (no phone) no organ ization name procedure (no phone) Medical Equipment No Information Payers Normalized Payer Value Private Health Insurance no information Summary Purpose eClinicalWorks SubmissioneClinicalWorks Submission Advance Directives Directive Response Recor ded Date Advance Directives N 12:57am Health Care Power of Grease Maker N 02/05/13 12:57am Organ Donor N 02/05/13 1 2:57am Directive Response Recor ded Date Advance Directives N 7:20pm Health Care Power of Grease Maker N 12/14/12 7:20pm Organ Donor N 12/14/12 7 :20pm Additional Source Comments This clinical document has been generated using [employer] software that has been certified by the Office of the National Coordinator for Health Information Technology (ONC 15.99.04.3023.Diam.31.00.0.078937) and the National Committee for [employer] (NCQA, as an eMeasure certified technology). FOR RECORDS PERTAINING TO PATIENTS WHO ARE OR HAVE BEEN ENROLLED IN A CHEMICAL D EPENDENCY/SUBSTANCE ABUSE PROGRAM, SOME INFORMATION MAY BE OMITTED. This clinica l summary was aggregated from multiple sources. Caution should be exercised in using it in the provision of clinical care. This summary normalizes information from multiple sources, and as a consequence, information in this document may ma terially change the coding, format and clinical context of patient data. In matt tion, data may be omitted in some cases. CLINICAL DECISIONS SHOULD BE BASED ON T HE PRIMARY CLINICAL RECORDS. Quarterly. provides no warranty or guara ntee of the accuracy or completeness of information in this document.The followi ng information is based on time limited clinical information UNRECOGNIZED CONTENT PROVIDED BELOW FOR UNRECOGNIZED SECTION REASON FOR VISIT EMR-[facility] [place] UNRECOGNIZED CONTENT PROVIDED BELOW FOR UNRECOGNIZED SECTION MEDICAL (GENERAL) HISTORY Type Description Date Medical History ulcerative colitis Medical History cystic acne Medical History NARC ALERT Medical History Colostomy Surgical History colon resection d/t ulcerative colitis w/ Dr. West at [facility] 07/2014 Surgical History removal of left zach l bone d/t abcess infection that was spreading Surgical History colonoscopy 2012 Surgical History flex sigmoidoscopy 2013 Surgical History removal of scars vi a laser surgery w/ Dr. Nicholson Surgical History dental surgery
[2019-12-12] MEDS ORDERED: fentaNYL INJECTION 100 MCG/2 ML AMP IVP ONE ×3 (09:00→11:00)
[2019-12-12 09:11] LABS: BASOPHILS % (AUTO) 0 % (0-10); EOSINOPHILS # (AUTO) 0.2 10^3/uL (0.0-0.3); EOSINOPHILS % (AUTO) 2 % (0-10); HEMATOCRIT 32 % (40-54); HEMOGLOBIN 10.7 G/DL (13.3-17.7); LYMPHOCYTES % (AUTO) 12 % (12-44); MEAN CORPUSCULAR HGB CONC 34 G/DL (32-36); MEAN CORPUSCULAR VOLUME 76 FL (80-99); MEAN PLATELET VOLUME 9.3 FL (7.4-10.4); MONOCYTES # (AUTO) 1.2 X 10^3 (0.0-1.0); MONOCYTES % (AUTO) 15 % (0-12); NEUTROPHILS # (AUTO) 5.9 X 10^3 (1.8-7.8); NEUTROPHILS % (AUTO) 71 % (42-75); PLATELET COUNT 354 10^3/uL (130-400); RED CELL DISTRIBUTION WIDTH 15.9 % (10.0-14.5); WHITE BLOOD COUNT 8.3 10^3/uL (4.3-11.0)
[2019-12-12] MEDS ORDERED: PIPERACILLIN SODIUM/TAZOBACTAM 4.5 GM in NS (IVPB) 100 ML IV ONE (09:15)
[2019-12-12 09:16] LABS: MEAN CORPUSCULAR HEMOGLOBIN 25 PG (25-34)
--- NOTE | 2019-12-12 09:42 | Diagnostic Imaging Report ---
INDICATION: Abdominal pain and surgery. Time of exam 9:31 AM Correlation is made with prior chest from 07/02/2019. The heart size is normal. The pulmonary vascularity is unremarkable. The lungs are clear. No infiltrate, effusion or pneumothorax is detected. Impression: No acute cardiopulmonary process is detected. Dictated by: Dictated on workstation # [id number]
[2019-12-12 09:52] LABS: ALBUMIN 2.8 GM/DL (3.2-4.5); CHLORIDE 98 MMOL/L (98-107); POTASSIUM 2.8 MMOL/L (3.6-5.0); SODIUM 137 MMOL/L (135-145)
[2019-12-12 09:53] LABS: CALCIUM 8.2 MG/DL (8.5-10.1)
[2019-12-12 09:54] LABS: PROTHROMBIN TIME PATIENT 13.6 SEC (12.2-14.7)
[2019-12-12 09:55] LABS: GLUCOSE 93 MG/DL (70-105)
[2019-12-12 09:56] LABS: BILIRUBIN,TOTAL 0.5 MG/DL (0.1-1.0); CARBON DIOXIDE 26 MMOL/L (21-32)
--- NOTE | 2019-12-12 09:56 | ED Abdominal Pain ---
General Chief Complaint: Abdominal/GI Problems Stated Complaint: ABD PAIN Nursing Triage Note: Pt brought in by [facility] from home with complaint of abd pain and fever. pt had abd surgery in [place] by dr shelley on friday for adhesions. pt states pain has been increasing. Sepsis Screen: No Definite Risk Source of Information: Patient, Old Records Exam Limitations: No Limitations History of Present Illness Date Seen by Provider: Dec 12, 2019 Time Seen by Provider: 08:51 Initial Comments This 29-year-old young man presents to the emergency room with abdominal pain, bloating, and fever up to 100.8 for EMS. He had surgery on December [address] Shelley at [facility] for adhesional lysis and fistula repair. He had a prior colectomy for treatment of ulcerative colitis. Since then he has become progressively weak and has had very poor oral intake and urine output. His incision is draining purulent material. He is in significant pain and complains of abdominal bloating as well. He has been very weak today and unable to get up out of bed. Allergies and Home Medications Allergies Coded Allergies: prednisone (Unverified Allergy, Severe, SWELLING SOA, 06/19/14) methylprednisolone (Verified Allergy, Mild, 07/06/14) levofloxacin (Verified Allergy, Unknown, 07/06/14) ADDED-07/06/14 morphine (Unverified Adverse Reaction, Intermediate, HEADACHE, 06/19/14) Home Medications Acetaminophen 500 Mg Tablet, 1,000 MG PO TID PRN for PAIN, (Reported) take 2 (500 mg) tablets Cimetidine 200 Mg Tablet, 200 MG PO BID PRN for stomach upset, (Reported) Clindamycin Phos 60 Ml Lotion, 1 APPLIC TOP BID, (Reported) Mesalamine 250 Mg Capsule.er, 500 MG PO BID, (Reported) take 2 (250 mg) tablets Multivitamin 1 Each Tablet, 1 EACH PO DAILY, (Reported) Ondansetron Hcl 8 Mg/Tab Tab.rapdis, 8 MG PO Q4H PRN for NAUSEA/VOMITING, (Reported) Oxycodone HCl 10 Mg Tablet, 10 MG PO BID, (Reported) Oxycodone HCl 15 Mg Tab.er.12h, 30 MG PO BID, (Reported) Pyridoxine/Melatonin 1 Tab Tablet, 3 MG PO HS, (Reported) Quetiapine Fumarate 100 Mg Tablet, 100 MG PO HS, (Reported) Patient Home Medication List Home Medication List Reviewed: Yes Review of Systems Review of Systems Constitutional: see HPI EENTM: No Symptoms Reported Respiratory: No Symptoms Reported Cardiovascular: No Symptoms Reported Gastrointestinal: See HPI Genitourinary: See HPI Musculoskeletal: no symptoms reported Skin: no symptoms reported Psychiatric/Neurological: No Symptoms Reported Endocrine: No Symptoms Reported Hematologic/Lymphatic: No Symptoms Reported Past Mxuqymy-Vhphxt-Cproql Hx Past Med/Social Hx: Reviewed Nursing Past Med/Soc Hx Patient Social History Alcohol Use: Occasionally Uses Recreational Drug Use: No Smoking Status: Current Everyday Smoker 2nd Hand Smoke Exposure: No Recent Foreign Travel: No Contact w/Someone Who Travel: No Recent Infectious Disease Expo: No Physical Abuse: No Sexual Abuse: No Mistreated: No Fear: No Immunizations Up To Date Tetanus Booster (TDap): More than 5yrs Date of Influenza Vaccine: May 25, 2014 Seasonal Allergies Seasonal Allergies: No Past Medical History Surgeries: Yes (COLONOSCOPY X4, TEETH REMOVED,MOLES REMOVED ,COLECTOMY/COLOSTOMY,LASER/ACNE) Abdominal, Appendectomy, Bowel Surgery, Orthopedic Respiratory: No Cardiac: No Neurological: Yes (RLS) Reproductive Disorders: No Sexually Transmitted Disease: No HIV/AIDS: No Gastrointestinal: Yes (ULCERATIVE COLITIS/ COLOSTOMY, 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) Crohns Disease Musculoskeletal: No Endocrine: No HEENT: No Loss of Vision: Denies Hearing Impairment: Denies Cancer: No Psychosocial: Yes Sleep Difficulties Integumentary: Yes (MRSA, CYSTIC ACNE) Blood Disorders: Yes (ANEMIA) Adverse Reaction/Blood Tranf: No Family Medical History Reviewed Nursing Family Hx Family history: Arthritis 03 MOTHER (fibra myalgia) Family history: Cardiovascular disease 03 FATHER (heart mirmur) Family history: Diabetes mellitus 09 BROTHER (brother has really low & high blood sugars) History of - respiratory disease 03 MOTHER (emphasemia) Heart Disease, COPD, Diabetes Physical Exam Vital Signs Vital Signs - First Documented 12/12/19 08:50 Temp 36.8 Pulse 92 Resp 17 B/P (MAP) 134/97 (109) Pulse Ox 96 O2 Delivery Room Air Capillary Refill : Less Than 3 Seconds Height/Weight/BMI Height: 6'1" Weight: 165lbs. 7.0oz. 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, no motor/sensory deficits, alert, normal mood/affect, oriented x 3 Skin: normal color, warm/dry, other (see above) Focused Exam Lactate Level 12/12/19 09:37: Lactic Acid Level 0.75 Lactic Acid Level Laboratory Tests Test 12/12/19 09:37 Lactic Acid Level 0.75 MMOL/L (0.50-2.00) Progress/Results/Core Measures Results/Orders Lab Results Laboratory Tests Test 12/12/19 08:57 12/12/19 09:37 Range/Units White Blood Count 8.3 4.3-11.0 10^3/uL Red Blood Count 4.20 L 4.35-5.85 10^6/uL Hemoglobin 10.7 L 13.3-17.7 G/DL Hematocrit 32 L 40-54 % Mean Corpuscular Volume 76 L 80-99 FL Mean Corpuscular Hemoglobin 25 25-34 PG Mean Corpuscular Hemoglobin Concent 34 32-36 G/DL Red Cell Distribution Width 15.9 H 10.0-14.5 % Platelet Count 354 130-400 10^3/uL Mean Platelet Volume 9.3 7.4-10.4 FL Neutrophils (%) (Auto) 71 42-75 % Lymphocytes (%) (Auto) 12 12-44 % Monocytes (%) (Auto) 15 H 0-12 % Eosinophils (%) (Auto) 2 0-10 % Basophils (%) (Auto) 0 0-10 % Neutrophils # (Auto) 5.9 1.8-7.8 X 10^3 Lymphocytes # (Auto) 1.0 1.0-4.0 X 10^3 Monocytes # (Auto) 1.2 H 0.0-1.0 X 10^3 Eosinophils # (Auto) 0.2 0.0-0.3 10^3/uL Basophils # (Auto) 0.0 0.0-0.1 10^3/uL Prothrombin Time 13.6 12.2-14.7 SEC INR Comment 1.0 0.8-1.4 Activated Partial Thromboplast Time 28 24-35 SEC Sodium Level 137 135-145 MMOL/L Potassium Level 2.8 L 3.6-5.0 MMOL/L Chloride Level 98 98-107 MMOL/L Carbon Dioxide Level 26 21-32 MMOL/L Anion Gap 13 5-14 MMOL/L Blood Urea Nitrogen 12 7-18 MG/DL Creatinine 0.60 0.60-1.30 MG/DL Estimat Glomerular Filtration Rate > 60 BUN/Creatinine Ratio 20 Glucose Level 93 70-105 MG/DL Lactic Acid Level 0.75 0.50-2.00 MMOL/L Calcium Level 8.2 L 8.5-10.1 MG/DL Corrected Calcium 9.2 8.5-10.1 MG/DL Total Bilirubin 0.5 0.1-1.0 MG/DL Aspartate Amino Transf (AST/SGOT) 15 5-34 U/L Alanine Aminotransferase (ALT/SGPT) 10 0-55 U/L Alkaline Phosphatase 69 40-136 U/L C-Reactive Protein High Sensitivity 14.78 H 0.00-0.50 MG/DL Total Protein 6.0 L 6.4-8.2 GM/DL Albumin 2.8 L 3.2-4.5 GM/DL Lipase 64 8-78 U/L My Orders Orders - NANCY MORAN MD Cbc With Automated Diff (12/12/19 08:59) Comprehensive Metabolic Panel (12/12/19 08:59) Blood Culture (12/12/19 08:59) Sputum Culture (12/12/19 08:59) Urinalysis (12/12/19 08:59) Urine Culture (12/12/19 08:59) Protime With Inr (12/12/19 08:59) Partial Thromboplastin Time (12/12/19 08:59) Chest 1 View, Ap/Pa Only (12/12/19 08:59) Ed Iv/Invasive Line Start (12/12/19 08:59) Ed Iv/Invasive Line Start (12/12/19 08:59) Vital Signs Adult Sepsis Patie Q15M (4/19/20 08:59) Remove Rings In Anticipation O (12/12/19 08:59) Lactic Acid Analyzer (12/12/19 08:59) Fentanyl Injection (Sublimaze Injection (12/12/19 09:00) Lipase (12/12/19 08:59) Wound Culture (12/12/19 08:59) Ct Abdomen/Pelvis W (12/12/19 09:01) Piperacillin Sodium/Tazobactam (Zosyn Vi (12/12/19 09:15) Fentanyl Injection (Sublimaze Injection (12/12/19 09:45) Iohexol Injection (Omnipaque 350 Mg/Ml 1 (12/12/19 10:00) Received Contrast (Hold Metformin- Contr (12/12/19 10:00) Ns (Ivpb) (Sodium Chloride 0.9% Ivpb Bag (12/12/19 10:00) Hs C Reactive Protein (12/12/19 10:08) Potassium Cl 10meq/50ml Ivpb (Kcl 10 Meq (12/12/19 10:30) Ns Iv 500 Ml (Sodium Chloride 0.9%) (12/12/19 10:41) Medications Given in ED Current Medications Medications Dose Ordered Sig/Laila Route Start Time Stop Time Status Last Admin Dose Admin Fentanyl Citrate 75 mcg ONCE ONCE IVP 12/12/19 09:00 12/12/19 09:01 DC 12/12/19 09:10 75 MCG Fentanyl Citrate 100 mcg ONCE ONCE IVP 12/12/19 09:45 12/12/19 09:46 DC 12/12/19 09:50 100 MCG Iohexol 100 ml ONCE ONCE IV 12/12/19 10:00 12/12/19 10:01 DC 12/12/19 10:05 100 ML Piperacillin Sod/ Tazobactam Sod 4.5 gm/Sodium Chloride 100 ml @ 200 mls/hr ONCE ONCE IV 12/12/19 09:15 12/12/19 09:45 DC 12/12/19 10:20 200 MLS/HR Potassium Chloride 50 ml @ 50 mls/hr ONCE ONCE IV 12/12/19 10:30 12/12/19 11:29 DC 12/12/19 11:02 50 MLS/HR Sodium Chloride 100 ml ONCE ONCE IV 12/12/19 10:00 12/12/19 10:01 DC 12/12/19 10:06 80 ML Sodium Chloride 500 ml @ 0 mls/hr Q0M ONCE IV 12/12/19 10:41 12/12/19 10:42 DC 12/12/19 11:02 0 MLS/HR Vital Signs/I&O 12/12/19 08:50 Temp 36.8 Pulse 92 Resp 17 B/P (MAP) 134/97 (109) Pulse Ox 96 O2 Delivery Room Air Blood Pressure Mean: 109 Progress Progress Note : Time: 12:09 Progress Note Patient was seen and examined upon arrival. Pain was treated with fentanyl. There was purulent drainage coming from his incision. Zosyn was given for initial antibiotic therapy. CT of the abdomen and pelvis was obtained which revealed ileus with possible partial small bowel obstruction. Patient received a liter of IV normal saline as initiated by EMS. He was then given 10 mEq of potassium along with a 500 mL bag of normal saline. Case was discussed with Dr. Shelley and patient was admitted. Diagnostic Imaging Diagonstic Imaging: Xray Plain Films/CT/US/NM/MRI: chest Comments Chest x-ray viewed by me and report reviewed. See report below: NAME: MARILYN LEPE [facility] REC#: [id number] PT STATUS: REG ER : 1990 PHYSICIAN: NANCY MORAN MD ADMIT DATE: 12/12/19/ER Draft Date of Exam:12/12/19 CHEST 1 VIEW, AP/PA ONLY INDICATION: Abdominal pain and surgery. Time of exam 9:31 AM Correlation is made with prior chest from 07/02/2019. The heart size is normal. The pulmonary vascularity is unremarkable. The lungs are clear. No infiltrate, effusion or pneumothorax is detected. Impression: No acute cardiopulmonary process is detected. Dictated on workstation # [id number] Dict: 12/12/1943 Trans: 12/12/19 0942 [facility] [id number] Interpreted by: JESSEE HAMMOND MD Diagonstic Imaging: CT Plain Films/CT/US/NM/MRI: abdomen, pelvis Comments CT abdomen and pelvis viewed by me and report reviewed. See report below: NAME: MARILYN LEPE [facility] REC#: [id number] PT STATUS: REG ER : 1990 PHYSICIAN: NANCY MORAN MD ADMIT DATE: 12/12/19/ER Draft Date of Exam:12/12/19 CT ABDOMEN/PELVIS W PROCEDURE: CT abdomen and pelvis with contrast. TECHNIQUE: Multiple contiguous axial images were obtained through the abdomen and pelvis after administration of intravenous contrast. Auto Exposure Controls were utilized during the CT exam to meet ALARA standards for radiation dose reduction. INDICATION: Abdominal pain and fever. Recent surgery for adhesions The liver, gallbladder and bile ducts are normal. The spleen, pancreas and adrenals are normal. Kidneys, ureters and bladder are normal. There are air and fluid-filled loops of large and small bowel. There is a transition of dilated air and fluid-filled loops of small bowel in the left lower quadrant with less dilated loops of distal bowel suggestive of partial bowel obstruction superimposed upon a generalized ileus. No intramural or air is seen. There is a small amount of free air seen in the left lower quadrant which could be residual from the recent surgery. This is just superior to the bladder. No abscess is evident. There is some air at the incision site also likely from recent surgery. No drainable abscess is evident at this site. IMPRESSION: There is appearance of partial small bowel obstruction which is probably superimposed upon a generalized ileus. There is some free air which is likely residual from recent surgery. No drainable abscess is evident at this time. Dictated on workstation # [id number] Dict: 12/12/19 1026 Trans: 12/12/19 1040 [facility] [id number] Interpreted by: MIRA CALDERA MD Departure Communication (Admissions) Time/Spoke to Admitting Phy: 10:50 Dr. Shelley Impression Primary Impression: Incisional infection Additional Impressions: Ileus Generalized abdominal pain Nausea and vomiting Qualified Codes: R11.2 - Nausea with vomiting, unspecified Hypokalemia Disposition: ADMITTED INPATIENT Condition: Improved Admissions Decision to Admit Reason: Admit from ER (General) Decision to Admit/Date: Dec 12, 2019 Time/Decision to Admit Time: 09:00 Departure-Patient Inst. Referrals: YEYO CONTRERAS DO (PCP/Family) Primary Care Physician NANCY MORAN MD Dec 12, 2019 09:56
[2019-12-12 09:58] LABS: ALKALINE PHOSPHATASE 69 U/L (40-136); GFR ESTIMATED > 60
[2019-12-12 09:59] LABS: BUN/CREATININE RATIO 20
[2019-12-12] MEDS ORDERED: NS 100 ML (IVPB) BAG IV ONE (10:00)
[2019-12-12] MEDS ORDERED: HOLD METFORMIN - RECEIVED CONTRAST 20 ML VIAL IV SCH (10:00)
[2019-12-12] MEDS ORDERED: IOHEXOL 350 MG/ML 100 ML (OMNIPAQUE 350) VIAL IV ONE (10:00)
[2019-12-12 10:01] LABS: ALANINE AMINOTRANSFERASE 10 U/L (0-55)
[2019-12-12 10:02] LABS: LIPASE 64 U/L (8-78)
[2019-12-12] MEDS ORDERED: POTASSIUM CL 10MEQ/50ML IVPB 50 ML IV ONE (10:30)
[2019-12-12] MEDS ORDERED: NS IV 500 ML 500 ML IV ONE (10:41)
--- NOTE | 2019-12-12 10:42 | Diagnostic Imaging Report ---
PROCEDURE: CT abdomen and pelvis with contrast. TECHNIQUE: Multiple contiguous axial images were obtained through the abdomen and pelvis after administration of intravenous contrast. Auto Exposure Controls were utilized during the CT exam to meet ALARA standards for radiation dose reduction. INDICATION: Abdominal pain and fever. Recent surgery for adhesions The liver, gallbladder and bile ducts are normal. The spleen, pancreas and adrenals are normal. Kidneys, ureters and bladder are normal. There are air and fluid-filled loops of large and small bowel. There is a transition of dilated air and fluid-filled loops of small bowel in the left lower quadrant with less dilated loops of distal bowel suggestive of partial bowel obstruction superimposed upon a generalized ileus. No intramural or air is seen. There is a small amount of free air seen in the left lower quadrant which could be residual from the recent surgery. This is just superior to the bladder. No abscess is evident. There is some air at the incision site also likely from recent surgery. No drainable abscess is evident at this site. IMPRESSION: There is appearance of partial small bowel obstruction which is probably superimposed upon a generalized ileus. There is some free air which is likely residual from recent surgery. No drainable abscess is evident at this time. Dictated by: Dictated on workstation # [id number]
[2019-12-12] MEDS ORDERED: KETOROLAC 30 MG/ML VIAL IVP ONE (11:00)
--- NOTE | 2019-12-12 11:44 | NUR ---
Attempted to call and update pts mother at this time, no answer.
--- NOTE | 2019-12-12 12:30 | NUR ---
MARILYN LEPE admitted to room 411-1, with an admitting diagnosis of ABD PAIN, , on 12/12/19 from ED via W/C, accompanied by STAFF. MARILYN LEPE introduced to surroundings, call light, bed controls, phone, TV, temperature control, lights, meal times, smoking policy, visitor policy, side rail policy, bathrooms and showers. Patient Rights given to patient in the handbook. MARILYN LEPE verbalizes understanding that [facility] is not responsible for the loss or damage to any personal effects or valuables that are kept in the patients posession during their hospitalization. The following Patient Care Plans were discussed with the PATIENT: Discharge Planning, KNOWLEDGE, INFECTION AND PAIN. MARILYN LEPE verbalizes understanding of Interdisciplinary Patient Education.
[2019-12-12 12:33] VITALS: BP 125/76
[2019-12-12] MEDS ORDERED: D5 1/2 NS W/KCL 40 MEQ/L 1,000 ML IV SCH (13:00)
[2019-12-12] MEDS ORDERED: ONDANSETRON 4 MG/2 ML (SDV) Z0FRAN IVP PRN (13:00)
--- NOTE | 2019-12-12 13:00 | NUR ---
DOES NOT WANT NURSE TO CHANGE ABD DRESSING, STATES IT WAS CHANGED IN ED, C/O ABD PAIN, C/O NAUSEA, COLOSTOMY PATENT WITH DARK COLOR STOOL.
--- NOTE | 2019-12-12 13:02 | NUR ---
PTD Vanco - 1750mg x 1 over 2 hours, then 1gm every 8 hours.
[2019-12-12] MEDS ORDERED: HYDR-4342 PO (13:05)
[2019-12-12] MEDS: FAMOTIDINE 20MG/2ML IV (PEPCID) IV SCH ×2 (13:17→20:41)
[2019-12-12 13:30] VITALS: BP 120/76
[2019-12-12] MEDS: fentaNYL INJECTION 100 MCG/2 ML AMP IV PRN ×3 (13:45→20:41)
[2019-12-12] MEDS ORDERED: VANCOMYCIN 1,750 MG/NS 500 ML IVPB IV NR ×2 (14:00)
--- NOTE | 2019-12-12 14:09 | HISTORY AND PHYSICAL ---
DATE OF SERVICE: 12/12/2019 ADMIT DATE: 12/12/2019. ATTENDING PHYSICIAN: [facility]. HISTORY OF PRESENT ILLNESS: This is a 29-year-old male who is known to us. 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 He was diagnosed with ulcerative colitis as a child and did have to undergo a subtotal colectomy with placement of ileostomy in 2013. He then developed an abscess of the surgery. He has been tried on several rounds of conservative medical management with antibiotics as wound care without any success. He reports that most of time this would almost healed and then reopened and proceed with drainage. He does also report a continued abdominal pain. CT was performed on 11/24/2019, which did not show any active inflammation or signs of ulcerative colitis. There was no communication identified between the intestines in the fistula. On 12/06/2019, the patient did undergo laparotomy with excision of abdominal wall fistula and partial resection of rectal stump. There was a communication found between the rectal stump and the abdominal wall fistula. On today's visit, the patient reports that he did well initially after surgery until approximately 2 days ago when he reports he started developing increasing abdominal pain as well as some drainage. He reports that this has persisted and reports that he did feel like he was running a fever this morning. He then presented to the Emergency Department where a CT scan was performed, which did show what appeared to be an ileus. However, there were no abscesses identified intraperitoneal. There was some purulent drainage noted towards the inferior portion of the incision with some mild erythema as well as a foul smell. This did appear to be consistent with an abscess. He did have a normal white count. PAST MEDICAL HISTORY: Ulcerative colitis. PAST SURGICAL HISTORY: Subtotal colectomy with ileostomy placement 07/2014, left ankle and right middle finger surgery, excision of abdominal wall fistula and partial resection of rectal stump 12/06/2019. ALLERGIES: PREDNISONE, LEVAQUIN. MEDICATIONS: Cimetidine 200 mg b.i.d. p.r.n., mesalamine 250 mg 2 tablets b.i.d., multivitamin daily, Zofran 8 mg q.4 hours p.r.n., oxycodone 10 mg b.i.d., oxycodone 15 mg 2 tablets q.12h., pyridoxine/melatonin 3 mg at bedtime, quetiapine 100 mg at bedtime. SOCIAL HISTORY: Positive for smoke daily for alcohol. VITAL SIGNS: Temperature 37.3 degrees Celsius, blood pressure is 125/76. Pulse 81, respirations 16, O2 96% on room air. REVIEW OF SYSTEMS: This is a well-nourished male in no acute distress. He is not experiencing any shortness of breath or difficulty breathing. No chest pain, palpitations or diaphoresis. He does report episodes of nausea as well as vomiting. He is also reporting bloating as well as a diffuse, sharp abdominal pain. No diarrhea or constipation. No bloody stools. No dark tarry stools. No recent inadvertent weight loss. He does report some sweats. All other review of systems negative. PHYSICAL EXAMINATION: CHEST: Clear. Good breath sounds bilaterally. HEART: Regular, no murmurs. EXTREMITIES: No lower extremity edema. Negative Homans sign. HEENT: No scleral icterus. NECK: No cervical lymphadenopathy. ABDOMEN: Soft, slightly distended with diffuse pain with palpation. There is a midline incision towards the inferior portion of the abdomen. There is also a small opening of the incision with purulent drainage as well as a foul smell with some mild erythema. This is a painful upon palpation. SKIN: Warm, dry and pink. NEUROLOGIC: Awake, alert and oriented x3. ASSESSMENT AND PLAN: A 29-year-old male with a postop ileus as well as postoperative abdominal wall abscess. At this time, we will admit the patient and proceed with IV fluids as well as IV antibiotics, pain and nausea medication as needed. Also have him proceed with bowel rest at this time and once he has returned a bowel function, then we will proceed with starting and advancing his diet. For the abdominal abscess, we will also remove some of the skin jose today and proceed with an iodoform packing gauze twice a day as well as needed. We will also need to keep this clean and dry and allow this to heal by a secondary intention. Job ID: [id number] DocumentID: [id number] Dictated Date: 12/12/2019 12:58:17 White Lead Grinder Date: 12/12/2019 14:09:10 Dictated By: INDIRA ARCHIBALD APRN
[2019-12-12 14:30] VITALS: BP 126/77
--- NOTE | 2019-12-12 15:00 | NUR ---
Report from Citlalli WALKER, will assume care of patient at this time.
[2019-12-12 16:00] VITALS: BP 134/75
[2019-12-12] MEDS: ENOXAPARIN 40 MG/0.4 ML (LOVENOX) SYR SC SCH (16:54)
[2019-12-12] MEDS: PIPERACILLIN/TAZO 4.5 GM/NS 100 ML IV SCH ×2 (16:54)
[2019-12-12] MEDS ORDERED: HYDROcodone/APAP 7.5 MG/325 MG (LORTAB, LORCET PLUS) TABLET PO PRN (17:45)
[2019-12-12] MEDS: KETOROLAC 15 MG/ML VIAL IV PRN (18:32)
[2019-12-12] MEDS: HYDROcodone/APAP 10 MG/325 MG (LORTAB) TAB PO PRN ×2 (19:22→23:15)
[2019-12-12 20:00] VITALS: BP 118/66
[2019-12-12] MEDS: LACTATED RINGERS 1,000 ML IV SCH (21:00)
[2019-12-12] MEDS: VANCOMYCIN 1 GM/NS 250 ML IVPB IV SCH ×2 (22:05)
[2019-12-13] VITALS (7 sets, daily range): BP systolic 125–130; BP diastolic 76–83
[2019-12-13] MEDS: fentaNYL INJECTION 100 MCG/2 ML AMP IV PRN ×7 (00:40→23:51)
[2019-12-13] MEDS: PIPERACILLIN/TAZO 4.5 GM/NS 100 ML IV SCH ×8 (00:40→23:52)
[2019-12-13] MEDS: KETOROLAC 15 MG/ML VIAL IV PRN ×3 (02:12→18:00)
[2019-12-13] MEDS: HYDROcodone/APAP 10 MG/325 MG (LORTAB) TAB PO PRN ×5 (03:35→22:08)
[2019-12-13] MEDS: LACTATED RINGERS 1,000 ML IV SCH ×4 (04:26→23:53)
[2019-12-13 04:40] LABS: BASOPHILS % (AUTO) 0 % (0-10); EOSINOPHILS # (AUTO) 0.2 10^3/uL (0.0-0.3); EOSINOPHILS % (AUTO) 2 % (0-10); HEMATOCRIT 29 % (40-54); HEMOGLOBIN 9.4 G/DL (13.3-17.7); LYMPHOCYTES # (AUTO) 0.9 X 10^3 (1.0-4.0); LYMPHOCYTES % (AUTO) 11 % (12-44); MEAN CORPUSCULAR HEMOGLOBIN 25 PG (25-34); MEAN CORPUSCULAR HGB CONC 33 G/DL (32-36); MEAN CORPUSCULAR VOLUME 77 FL (80-99); MEAN PLATELET VOLUME 9.3 FL (7.4-10.4); MONOCYTES % (AUTO) 12 % (0-12); NEUTROPHILS # (AUTO) 6.3 X 10^3 (1.8-7.8); NEUTROPHILS % (AUTO) 75 % (42-75); PLATELET COUNT 324 10^3/uL (130-400); RED CELL DISTRIBUTION WIDTH 15.8 % (10.0-14.5); WHITE BLOOD COUNT 8.4 10^3/uL (4.3-11.0)
[2019-12-13 04:59] LABS: ALANINE AMINOTRANSFERASE 8 U/L (0-55); ALBUMIN 2.5 GM/DL (3.2-4.5); ALKALINE PHOSPHATASE 69 U/L (40-136); BILIRUBIN,TOTAL 0.4 MG/DL (0.1-1.0); BUN/CREATININE RATIO 16; CALCIUM 7.8 MG/DL (8.5-10.1); CARBON DIOXIDE 24 MMOL/L (21-32); CHLORIDE 103 MMOL/L (98-107); CREATININE SERUM 0.69 MG/DL (0.60-1.30); GFR ESTIMATED > 60; GLUCOSE 83 MG/DL (70-105); POTASSIUM 2.9 MMOL/L (3.6-5.0); SODIUM 138 MMOL/L (135-145); TOTAL PROTEIN 5.3 GM/DL (6.4-8.2)
[2019-12-13] MEDS: VANCOMYCIN 1 GM/NS 250 ML IVPB IV SCH ×6 (05:35→22:09)
[2019-12-13] MEDS: FAMOTIDINE 20MG/2ML IV (PEPCID) IV SCH ×2 (08:13→20:40)
--- NOTE | 2019-12-13 09:59 | NUR ---
Pt is listed as Buddhist but indicated that it is not important to him. Just wanted to rest for now.
--- NOTE | 2019-12-13 11:05 | NUR ---
SPOKE WITH THE PT AND WENT THRU THE EXT MED HISTORY TO COMPLETE THE MED REC PT SAYS THE ONLY THING HE TAKES IS THE PAIN MEDICATION FROM HIS RECENT SURGERY AND NO OTC MEDS
--- NOTE | 2019-12-13 12:58 | NUR ---
"RD ASSESSMENT PMHx: ulcerative colitis PT INTERACTION: Attempted to see pt twice today. Both times, pt opened eyes to acknowledge me and then closed eyes and refused to answer questions. All information is per chart review. Note PO intake of 100% x1meal. Note pt has ileostomy and 1 stool amount of 200ml, per chart review. Note pt not currently on bowel regimen per chart review. Note reent 28# wt gain x5mon, per chart review. Note presence of wound (abdominal wall abscess), per chart review. ABNORMAL NUTRITION-RELATED LAB VALUES LOW: K 2.9; Ca 7.8; Pro 5.3; alb 2.3 HIGH: Est. kcal needs: 8243-9545 kcal/kg | 20-25 kcal/kg Est. Pro needs: 109-127 g Pro | 1.2-1.4 g Pro/kg PES STATEMENT: Inadequate protein intake (NI-5.6.1) related to increased protein needs as evidenced by presence of wound (abd wall abscess) INTERVENTION: Continue with current diet order of Clear Liquid diet. Add Ensure Clear (vary) to meals TID, for increased kcal intake. Provides 250 kcal and 8 g Pro per serving. Will continue to follow and reassess as pt needs, intake, and status change. MONITOR/EVALUATE: PO Intake; Plan of Care; Hydration Status; Weight Status; Lab Values Vu Carter, , RD, LD"
[2019-12-13] MEDS ORDERED: TROUGH ORDER-PHARMACY XX NR (13:00)
[2019-12-13] MEDS: POTASSIUM CL 10MEQ/50ML IVPB 50 ML IV SCH ×4 (13:42→15:15)
--- NOTE | 2019-12-13 14:10 | NUR ---
PT REFUSING IV POTASSIUM, STOPPED FIRST BAG THAT WAS INFUSING. PT WANTS ORAL POTASSIUM. DR ROBERTO NOTIFIED VIA PHONE
[2019-12-13] MEDS ORDERED: KCL 20 MEQ POWDER FOR ORAL SOLUTION PO NR (15:30)
[2019-12-13] MEDS: ENOXAPARIN 40 MG/0.4 ML (LOVENOX) SYR SC SCH (16:47)
[2019-12-13] MEDS: KCL 20 MEQ POWDER FOR ORAL SOLUTION PO SCH (16:55)
--- NOTE | 2019-12-13 18:45 | NUR ---
INFORMATION SYSTEMS COORDINATOR NOTIFIED OF PT REQUESTING NEW SURGEON. PER DR ROBERTO REPORT, PT STATES HIS MOTHER WILL CALL AND WILL MAKE CHANGES TO HIS DR.
--- NOTE | 2019-12-13 19:01 | Progress Note ---
Subjective Date Seen by a Provider: Dec 13, 2019 Time Seen by a Provider: 18:45 Subjective/Events-last exam pt stable and in no acute distress however many cues consistent with opioid adddiction. will ask provider everytime to give more even when pt know when time is not ready. pt has a subcutaneous wound infxn and is on 100mcg fentanyl and 10mg hydrocodone simultaneously however stated ineffective and needs high doses. has past hx of doing the same with other clinicians. has untreated psychiatric issues and will not follow up. parents aware of multitude of problems however continues to be non-compliant. pt wishes to discontinue my services which I am ok with. states he will make c all to make appropriate changes. if this does occur that gives me the physician the right of refusal of any further care at any other time. Focused Exam Lactate Level 12/12/19 09:37: Lactic Acid Level 0.75 Objective Exam Vital Signs Date Time Temp Pulse Resp B/P (MAP) Pulse Ox O2 Delivery O2 Flow Rate FiO2 12/13/19 15:59 36.8 75 20 126/76 (93) 98 Room Air 12/13/19 12:00 38.0 88 20 129/83 (98) 97 Room Air 12/13/19 08:00 37.2 87 20 130/77 (94) 97 Room Air 12/13/19 04:00 37.4 69 18 125/79 (94) 97 Room Air 12/13/19 00:15 37.5 81 18 126/78 (94) 95 Room Air 12/12/19 20:40 Room Air 12/12/19 20:00 37.4 80 20 118/66 (83) 98 Room Air I & O 12/13/19 07:00 Intake Total 1400 ml Output Total 550 ml Balance 850 ml Capillary Refill : Less Than 3 Seconds General Appearance: No Apparent Distress HEENT: PERRL/EOMI Neck: Full Range of Motion Respiratory: Chest Non Tender, Lungs Clear, Normal Breath Sounds Cardiovascular: Regular Rate, Rhythm Gastrointestinal: normal bowel sounds, soft, tenderness, other (open wound draining, no purulence, no redness/erythema, mild subcutaneous edema) Extremity: Normal Capillary Refill Neurologic/Psychiatric: Alert, Oriented x3 Skin: Normal Color Lymphatic: No Adenopathy Results Lab Laboratory Tests 12/13/19 04:15: White Blood Count 8.4, Red Blood Count 3.75L, Hemoglobin 9.4L, Hematocrit 29L, Mean Corpuscular Volume 77L, Mean Corpuscular Hemoglobin 25, Mean Corpuscular Hemoglobin Concent 33, Red Cell Distribution Width 15.8H, Platelet Count 324, Mean Platelet Volume 9.3, Neutrophils (%) (Auto) 75, Lymphocytes (%) (Auto) 11L, Monocytes (%) (Auto) 12, Eosinophils (%) (Auto) 2, Basophils (%) (Auto) 0, Neutrophils # (Auto) 6.3, Lymphocytes # (Auto) 0.9L, Monocytes # (Auto) 1.0, Eosinophils # (Auto) 0.2, Basophils # (Auto) 0.0, Sodium Level 138, Potassium Level 2.9L, Chloride Level 103, Carbon Dioxide Level 24, Anion Gap 11, Blood Urea Nitrogen 11, Creatinine 0.69, Estimat Glomerular Filtration Rate > 60, BUN/Creatinine Ratio 16, Glucose Level 83, Calcium Level 7.8L, Corrected Calcium 9.0, Total Bilirubin 0.4, Aspartate Amino Transf (AST/SGOT) 16, Alanine Aminotransferase (ALT/SGPT) 8, Alkaline Phosphatase 69, C-Reactive Protein High Sensitivity 11.44H, Total Protein 5.3L, Albumin 2.5L 12/13/19 12:58: Vancomycin Level Trough 13.6 Microbiology 12/12/19 Blood Culture - Preliminary, Resulted No growth 12/12/19 Gram Stain - Final, Resulted 12/12/19 Wound Culture - Preliminary, Resulted Proteus species Gram Negative Jos Gram Positive Cocci Assessment/Plan Assessment/Plan Assess & Plan/Chief 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 on abx. please read HPI for further instructions. Clinical Quality Measures DVT/VTE Risk/Contraindication: Risk Factor Score Per Nursin RFS Level Per Nursing on Admit: 4+=Very High ABY ROBERTO MD Dec 13, 2019 19:01
[2019-12-14] MEDS: HYDROcodone/APAP 10 MG/325 MG (LORTAB) TAB PO PRN ×5 (02:09→20:43)
[2019-12-14] MEDS: fentaNYL INJECTION 100 MCG/2 ML AMP IV PRN ×7 (03:00→21:55)
[2019-12-14] MEDS: LACTATED RINGERS 1,000 ML IV SCH ×4 (03:26→23:23)
[2019-12-14 04:00] VITALS: BP 138/75
[2019-12-14] MEDS: VANCOMYCIN 1 GM/NS 250 ML IVPB IV SCH ×6 (06:09→20:42)
[2019-12-14] MEDS: KCL 20 MEQ POWDER FOR ORAL SOLUTION PO SCH ×2 (06:10→16:20)
[2019-12-14] MEDS: PIPERACILLIN/TAZO 4.5 GM/NS 100 ML IV SCH ×6 (07:39→23:18)
[2019-12-14 08:00] VITALS: BP 147/88
[2019-12-14] MEDS: FAMOTIDINE 20MG/2ML IV (PEPCID) IV SCH ×2 (08:03→20:42)
[2019-12-14] MEDS: KETOROLAC 15 MG/ML VIAL IV PRN ×3 (08:04→23:19)
--- NOTE | 2019-12-14 11:22 | Consultation - Hospitalist ---
HPI History of Present Illness: HPI/Chief Complaint CC: Medical management of UC patient with psychiatric issues during complicated wound HPI: This is a very debilitated 29yoWM w/h/o UC s/p multiple abdominal intestinal surgeries who underwent surgery for rectal stump revision on 12/06/19 who presented with complicated wound and ileus. Patient very difficult to obtain any information from and he appears to be unmotivated. Very difficult to manage considering patient and his mother want to "fire" all of the doctors taking care of him. Source: patient Exam Limitations: clinical condition Date Seen 12/14/19 Attending Physician Mendez Castro MD [place] [place] Referring Physician Date of Admission Dec 12, 2019 at 10:50 Home Medications & Allergies Home Medications Reviewed patient Home Medication Reconciliation performed by pharmacy medication reconciliations ecg technician and/or nursing. Patients Allergies have been reviewed. Allergies Allergies Coded Allergies prednisone (Unverified Allergy, Severe, SWELLING SOA, 06/19/14) methylprednisolone (Verified Allergy, Mild, 07/06/14) levofloxacin (Verified Allergy, Unknown, 07/06/14) ADDED-07/06/14 morphine (Unverified Adverse Reaction, Intermediate, HEADACHE, 06/19/14) Past Vcnldve-Qaqisa-Tqaoec Hx Past Med/Social Hx: Reviewed Nursing Past Med/Soc Hx, Reviewed and Corrections made Patient Social History Marrital Status: single Employed/Student: unemployed Alcohol Use: Occasionally Uses Recreational Drug Use: No Smoking Status: Current Everyday Smoker 2nd Hand Smoke Exposure: No Recent Foreign Travel: No Contact w/other who traveled: No Recent Infectious Disease Expo: No Immunizations Up To Date Tetanus Booster (TDap): More than 5yrs Date of Influenza Vaccine: May 25, 2014 Seasonal Allergies Seasonal Allergies: No Past Medical History Surgeries: Abdominal, Appendectomy, Bowel Surgery, Orthopedic Reproductive: No Sexually Transmitted Disease: No HIV/AIDS: No Gastrointestinal: Crohns Disease Loss of Vision: Denies Hearing Impairment: Denies Psychosocial: Sleep Difficulties History of Blood Disorders: Yes (ANEMIA) Adverse Reaction to Blood Barry: No Family History Reviewed Nursing Family Hx Family history: Arthritis 03 MOTHER (fibra myalgia) Family history: Cardiovascular disease 03 FATHER (heart mirmur) Family history: Diabetes mellitus 09 BROTHER (brother has really low & high blood sugars) History of - respiratory disease 03 MOTHER (emphasemia) Heart Disease, COPD, Diabetes Review of Systems Constitutional: see HPI Gastrointestinal: abdominal pain Physical Exam Physical Exam Vital Signs Vital Signs - First Documented 12/12/19 08:50 Temp 36.8 Pulse 92 Resp 17 B/P (MAP) 134/97 (109) Pulse Ox 96 O2 Delivery Room Air Capillary Refill : NONE Height, Weight, BMI Height: 6'1" Weight: 165lbs. 7.0oz. [id number]; 26.30 BMI Method:Stated General Appearance: No Apparent Distress, Chronically ill, Thin HEENT: PERRL/EOMI Neck: Full Range of Motion Respiratory: Chest Non Tender, Lungs Clear, Normal Breath Sounds Cardiovascular: Regular Rate, Rhythm Extremity: Normal Capillary Refill Neurologic/Psychiatric: Alert, Oriented x3, Depressed Affect Skin: Normal Color Lymphatic: No Adenopathy Results Results/Procedures Labs Laboratory Tests 12/13/19 04:15 12/14/19 11:55 Patient resulted labs reviewed. Assessment/Plan Assessment and Plan Assess & Plan/Chief Complaint Assessment: Complex abdominal wound Psychiatric issues Smoker UC Ileus? Hypokalemia DVT PPx on Lovenox Plan: Potassium supplement if continues trend Pain meds Ambulate Diagnosis/Problems Diagnosis/Problems (1) Incisional infection Status: Acute (2) Ileus Status: Acute (3) Nausea and vomiting Status: Acute Qualifiers: Vomiting type: unspecified Vomiting Intractability: non-intractable Qualified Codes: R11.2 - Nausea with vomiting, unspecified (4) Hx of ulcerative colitis Status: Acute (5) Narcotic abuse, continuous Status: Acute (6) Drug-seeking behavior Status: Acute (7) Chronic pain Status: Acute Clinical Quality Measures DVT/VTE Risk/Contraindication: Risk Factor Score Per Nursin RFS Level Per Nursing on Admit: 4+=Very High JOVANA CHAPARRO DO Dec 14, 2019 11:22
[2019-12-14 12:00] VITALS: BP 146/80
[2019-12-14 12:02] LABS: BASOPHILS % (AUTO) 0 % (0-10); EOSINOPHILS # (AUTO) 0.2 10^3/uL (0.0-0.3); EOSINOPHILS % (AUTO) 2 % (0-10); HEMATOCRIT 32 % (40-54); HEMOGLOBIN 10.3 G/DL (13.3-17.7); LYMPHOCYTES # (AUTO) 1.2 X 10^3 (1.0-4.0); LYMPHOCYTES % (AUTO) 11 % (12-44); MEAN CORPUSCULAR HEMOGLOBIN 25 PG (25-34); MEAN CORPUSCULAR HGB CONC 33 G/DL (32-36); MEAN CORPUSCULAR VOLUME 77 FL (80-99); MEAN PLATELET VOLUME 8.9 FL (7.4-10.4); MONOCYTES # (AUTO) 1.1 X 10^3 (0.0-1.0); MONOCYTES % (AUTO) 10 % (0-12); NEUTROPHILS # (AUTO) 8.5 X 10^3 (1.8-7.8); NEUTROPHILS % (AUTO) 78 % (42-75); PLATELET COUNT 445 10^3/uL (130-400); RED CELL DISTRIBUTION WIDTH 16.4 % (10.0-14.5); WHITE BLOOD COUNT 10.9 10^3/uL (4.3-11.0)
[2019-12-14 12:12] LABS: ALBUMIN 2.8 GM/DL (3.2-4.5); CHLORIDE 108 MMOL/L (98-107); POTASSIUM 3.4 MMOL/L (3.6-5.0); SODIUM 143 MMOL/L (135-145)
[2019-12-14 12:13] LABS: CALCIUM 8.3 MG/DL (8.5-10.1)
[2019-12-14 12:14] LABS: GLUCOSE 88 MG/DL (70-105)
[2019-12-14 12:15] LABS: CARBON DIOXIDE 24 MMOL/L (21-32)
[2019-12-14 12:16] LABS: BILIRUBIN,TOTAL 0.5 MG/DL (0.1-1.0)
[2019-12-14 12:18] LABS: ALKALINE PHOSPHATASE 74 U/L (40-136); CREATININE SERUM 1.26 MG/DL (0.60-1.30); GFR ESTIMATED > 60
[2019-12-14 12:19] LABS: BUN/CREATININE RATIO 6
[2019-12-14 12:20] LABS: MAGNESIUM 1.8 MG/DL (1.6-2.4)
[2019-12-14 12:21] LABS: ALANINE AMINOTRANSFERASE 9 U/L (0-55)
--- NOTE | 2019-12-14 13:08 | NUR ---
"RD ASSESSMENT PMHx: ulcerative colitis PT INTERACTION: Pt was awake and pleasant during nutrition assessment. Pt states current appetite is poor, and has been for some time. Note avg PO intake 75% x1d, per chart review. Pt states following a regular diet at home but avoids cow products and fiber as this affects his ulcerative colitis. Pt states no issues with chewing/swallowing food at this time. Pt states recent issues with nausea and vomiting. Note pt has ostomy and stool output appears good, per chart review. Pt states unsure of any recent wt changes. Note recent 28# wt gain x5mon, per chart review. Note presence of abdominal wall abscess per chart review. ABNORMAL NUTRITION-RELATED LAB VALUES LOW: K 2.9; Ca 7.8; Pro 5.3; alb 2.3 HIGH: Est. kcal needs: 2100-6302 kcal | 20-25 kcal/kg Est. Pro needs: 109-127 g Pro | 1.2-1.4 g Pro/kg PES STATEMENT: Inadequate protein intake ([id number]) related to increased protein needs as evidenced by presence of wound (abd wall abscess) INTERVENTION: Continue with current diet order of Regular diet. Add Ensure Clear (vary) to meals TID. Provides 250 kcal and 8 g Pro per serving for perceived benefit to wound healing. Will continue to follow and reassess as pt needs, intake, and status change. MONITOR/EVALUATE: PO Intake; Plan of Care; Hydration Status; Weight Status; Lab Values Vu Carter, MS, RD, LD"
--- NOTE | 2019-12-14 13:38 | Progress Note ---
Subjective Date Seen by a Provider: Dec 14, 2019 Time Seen by a Provider: 13:00 Subjective/Events-last exam doing ok. still complaints of pain and asks for more pain meds. wound looks ok. may benefit from VAC. patient has hx of psychiatric disorders and no resources at home and extremely non-compliant. Focused Exam Lactate Level 12/12/19 09:37: Lactic Acid Level 0.75 Objective Exam Vital Signs Date Time Temp Pulse Resp B/P (MAP) Pulse Ox O2 Delivery O2 Flow Rate FiO2 12/14/19 08:00 37.0 80 18 147/88 (107) 97 Room Air 12/14/19 08:00 97 Room Air 12/14/19 04:00 36.5 78 20 138/75 (96) 93 Room Air 12/13/19 23:57 37.1 79 20 126/78 (94) 96 Room Air 12/13/19 20:30 95 Room Air 12/13/19 19:39 37.0 75 20 130/78 (95) 95 Room Air 12/13/19 15:59 36.8 75 20 126/76 (93) 98 Room Air I & O 12/14/19 07:00 Intake Total 3560 ml Output Total 3600 ml Balance -40 ml Capillary Refill : NONE General Appearance: No Apparent Distress HEENT: PERRL/EOMI Neck: Full Range of Motion Respiratory: Chest Non Tender, Lungs Clear, Normal Breath Sounds Cardiovascular: Regular Rate, Rhythm Gastrointestinal: tenderness, other (wound clean/dry) Extremity: Normal Capillary Refill Neurologic/Psychiatric: Alert, Oriented x3 Skin: Normal Color Lymphatic: No Adenopathy Results Lab Laboratory Tests 12/14/19 11:55: White Blood Count 10.9, Red Blood Count 4.10L, Hemoglobin 10.3L, Hematocrit 32L, Mean Corpuscular Volume 77L, Mean Corpuscular Hemoglobin 25, Mean Corpuscular Hemoglobin Concent 33, Red Cell Distribution Width 16.4H, Platelet Count 445H, Mean Platelet Volume 8.9, Neutrophils (%) (Auto) 78H, Lymphocytes (%) (Auto) 11L , Monocytes (%) (Auto) 10, Eosinophils (%) (Auto) 2, Basophils (%) (Auto) 0, Neutrophils # (Auto) 8.5H, Lymphocytes # (Auto) 1.2, Monocytes # (Auto) 1.1H, Eosinophils # (Auto) 0.2, Basophils # (Auto) 0.0, Sodium Level 143, Potassium Level 3.4L, Chloride Level 108H, Carbon Dioxide Level 24, Anion Gap 11, Blood Urea Nitrogen 8, Creatinine 1.26, Estimat Glomerular Filtration Rate > 60, BUN/Creatinine Ratio 6, Glucose Level 88, Calcium Level 8.3L, Corrected Calcium 9.3, Magnesium Level 1.8, Total Bilirubin 0.5, Aspartate Amino Transf (AST/SGOT) 25, Alanine Aminotransferase (ALT/SGPT) 9, Alkaline Phosphatase 74, Total Protein 6.0L, Albumin 2.8L Microbiology 12/12/19 Blood Culture - Preliminary, Resulted No growth 12/12/19 Gram Stain - Final, Resulted 12/12/19 Wound Culture - Preliminary, Resulted Proteus species Gram Negative Jos Gram Positive Cocci Assessment/Plan Assessment/Plan Assess & Plan/Chief 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 on abx. please read HPI for further instructions. will consult wound care. Clinical Quality Measures DVT/VTE Risk/Contraindication: Risk Factor Score Per Nursin RFS Level Per Nursing on Admit: 4+=Very High ABY ROBERTO MD Dec 14, 2019 13:38
[2019-12-14] MEDS: ENOXAPARIN 40 MG/0.4 ML (LOVENOX) SYR SC SCH (15:30)
[2019-12-14 16:07] VITALS: BP_SYST 121; BP_SYST 144; BP_DIAS 72; BP_DIAS 83
[2019-12-14 19:46] VITALS: BP 127/75
[2019-12-15] VITALS (7 sets, daily range): BP systolic 127–146; BP diastolic 74–88
[2019-12-15] MEDS: fentaNYL INJECTION 100 MCG/2 ML AMP IV PRN ×6 (02:23→20:17)
[2019-12-15] MEDS: LACTATED RINGERS 1,000 ML IV SCH ×3 (02:24→16:10)
[2019-12-15] MEDS: HYDROcodone/APAP 10 MG/325 MG (LORTAB) TAB PO PRN ×5 (04:37→22:34)
[2019-12-15] MEDS: VANCOMYCIN 1 GM/NS 250 ML IVPB IV SCH ×6 (05:54→22:34)
[2019-12-15 05:59] LABS: BASOPHILS % (AUTO) 0 % (0-10); EOSINOPHILS # (AUTO) 0.3 10^3/uL (0.0-0.3); EOSINOPHILS % (AUTO) 3 % (0-10); HEMATOCRIT 29 % (40-54); HEMOGLOBIN 9.2 G/DL (13.3-17.7); LYMPHOCYTES % (AUTO) 11 % (12-44); MEAN CORPUSCULAR HEMOGLOBIN 25 PG (25-34); MEAN CORPUSCULAR HGB CONC 32 G/DL (32-36); MEAN CORPUSCULAR VOLUME 78 FL (80-99); MEAN PLATELET VOLUME 9.1 FL (7.4-10.4); MONOCYTES # (AUTO) 0.9 X 10^3 (0.0-1.0); MONOCYTES % (AUTO) 10 % (0-12); NEUTROPHILS # (AUTO) 6.8 X 10^3 (1.8-7.8); NEUTROPHILS % (AUTO) 77 % (42-75); PLATELET COUNT 429 10^3/uL (130-400); RED CELL DISTRIBUTION WIDTH 16.2 % (10.0-14.5); WHITE BLOOD COUNT 8.9 10^3/uL (4.3-11.0)
[2019-12-15] MEDS: KCL 20 MEQ POWDER FOR ORAL SOLUTION PO SCH ×2 (06:01→17:15)
[2019-12-15 06:34] LABS: ALBUMIN 2.4 GM/DL (3.2-4.5)
[2019-12-15 06:35] LABS: CHLORIDE 107 MMOL/L (98-107); POTASSIUM 3.2 MMOL/L (3.6-5.0); SODIUM 141 MMOL/L (135-145)
[2019-12-15 06:36] LABS: CALCIUM 7.8 MG/DL (8.5-10.1)
[2019-12-15 06:37] LABS: GLUCOSE 92 MG/DL (70-105); TOTAL PROTEIN 5.2 GM/DL (6.4-8.2)
[2019-12-15 06:38] LABS: CARBON DIOXIDE 24 MMOL/L (21-32)
[2019-12-15 06:39] LABS: BILIRUBIN,TOTAL 0.3 MG/DL (0.1-1.0)
[2019-12-15 06:40] LABS: ALKALINE PHOSPHATASE 73 U/L (40-136)
[2019-12-15 06:41] LABS: CREATININE SERUM 1.18 MG/DL (0.60-1.30); GFR ESTIMATED > 60
[2019-12-15 06:42] LABS: BUN/CREATININE RATIO 6
[2019-12-15 06:44] LABS: ALANINE AMINOTRANSFERASE 10 U/L (0-55)
[2019-12-15] MEDS: PIPERACILLIN/TAZO 4.5 GM/NS 100 ML IV SCH ×4 (07:25→15:20)
[2019-12-15] MEDS: KETOROLAC 15 MG/ML VIAL IV PRN ×2 (07:25→15:46)
[2019-12-15] MEDS: FAMOTIDINE 20MG/2ML IV (PEPCID) IV SCH ×2 (08:06→20:16)
--- NOTE | 2019-12-15 09:46 | Progress Note - Hospitalist ---
Subjective HPI/CC On Admission Date Seen by Provider: Dec 15, 2019 Time Seen by Provider: 10:00 CC: Medical management of UC patient with psychiatric issues during complicated wound HPI: This is a very debilitated 29yoWM w/h/o UC s/p multiple abdominal intestinal surgeries who underwent surgery for rectal stump revision on 12/06/19 who presented with complicated wound and ileus. Patient very difficult to obtain any information from and he appears to be unmotivated. Very difficult to manage considering patient and his mother want to "fire" all of the doctors taking care of him. Subjective/Events-last exam Patient appears better Very difficult to motivate PT consulted to help motivate Patient constantly asks for more pain meds Chronic narcotic dependency is an issue that is well documented Wound vac tolerated Hypokalemia managed with slow IV because he reports that it really briceno his arm and also started PO potassium Checked meds and labs Lovenox DVT PPx Review of Systems Gastrointestinal: Abdominal Pain Objective Exam Vital Signs Vital Signs Date Time Temp Pulse Resp B/P (MAP) Pulse Ox O2 Delivery O2 Flow Rate FiO2 12/15/19 16:00 37.2 83 20 135/82 (99) 98 Room Air Capillary Refill : NONE General Appearance: No Apparent Distress, WD/WN, Chronically ill, Thin Respiratory: Chest Non Tender, Lungs Clear, Normal Breath Sounds, No Accessory Muscle Use, No Respiratory Distress Cardiovascular: Regular Rate, Rhythm, No Edema, No Gallop, No JVD, No Murmur, Normal Peripheral Pulses Neurologic/Psychiatric: Alert, Oriented x3, No Motor/Sensory Deficits, fire pilot II- XII Norm as Tested, Depressed Affect Results/Procedures Lab Laboratory Tests 12/15/19 05:37 Patient resulted labs reviewed. Assessment/Plan Assessment and Plan Assess & Plan/Chief Complaint Assessment: Complex abdominal wound on abx empirically and wound vac Psychiatric issues Smoker UC Ileus hx Hypokalemia DVT PPx on Lovenox Poor motivation Plan: Potassium supplement IV and PO both Pain meds Ambulate PT consult Diagnosis/Problems Diagnosis/Problems (1) Incisional infection Status: Acute (2) Ileus Status: Acute (3) Nausea and vomiting Status: Acute Qualifiers: Vomiting type: unspecified Vomiting Intractability: non-intractable Qualified Codes: R11.2 - Nausea with vomiting, unspecified (4) Hx of ulcerative colitis Status: Acute (5) Narcotic abuse, continuous Status: Acute (6) Drug-seeking behavior Status: Acute (7) Chronic pain Status: Acute Clinical Quality Measures DVT/VTE Risk/Contraindication: Risk Factor Score Per Nursin RFS Level Per Nursing on Admit: 4+=Very High JOVANA CHAPARRO DO Dec 15, 2019 09:46
[2019-12-15] MEDS: MAGNESIUM 1 GM/100 ML IVPB 100 ML IV SCH ×2 (10:02→10:46)
[2019-12-15] MEDS: POTASSIUM CL 10MEQ/50ML IVPB 50 ML IV SCH ×4 (10:02→13:36)
--- NOTE | 2019-12-15 10:36 | Progress Note ---
Subjective Date Seen by a Provider: Dec 15, 2019 Time Seen by a Provider: 10:00 Subjective/Events-last exam wound vac in place. continue to complain of pain and refers for need for more pain meds. no fever/chills. tolerating diet. Objective Exam Vital Signs Date Time Temp Pulse Resp B/P (MAP) Pulse Ox O2 Delivery O2 Flow Rate FiO2 12/15/19 08:00 98 Room Air 12/15/19 07:59 37.4 90 18 131/85 (100) 98 Room Air 12/15/19 04:20 37.4 76 18 129/82 (98) 97 Room Air 12/15/19 00:10 37.0 89 18 127/76 (93) 97 Room Air 12/14/19 20:00 Room Air 12/14/19 19:46 36.6 82 18 127/75 (92) 97 Room Air 12/14/19 16:07 37.0 75 18 144/83 (103) 97 Room Air 12/14/19 12:00 36.7 77 18 146/80 (102) 99 Room Air I & O 12/15/19 07:00 Intake Total 4940 ml Output Total 1250 ml Balance 3690 ml Capillary Refill : Less Than 3 Seconds General Appearance: No Apparent Distress HEENT: PERRL/EOMI Neck: Full Range of Motion Respiratory: Chest Non Tender, Lungs Clear Cardiovascular: Regular Rate, Rhythm Gastrointestinal: normal bowel sounds, soft Extremity: Normal Capillary Refill Neurologic/Psychiatric: Alert, Oriented x3 Skin: Normal Color Lymphatic: No Adenopathy Results Lab Laboratory Tests 12/14/19 11:55: White Blood Count 10.9, Red Blood Count 4.10L, Hemoglobin 10.3L, Hematocrit 32L, Mean Corpuscular Volume 77L, Mean Corpuscular Hemoglobin 25, Mean Corpuscular Hemoglobin Concent 33, Red Cell Distribution Width 16.4H, Platelet Count 445H, Mean Platelet Volume 8.9, Neutrophils (%) (Auto) 78H, Lymphocytes (%) (Auto) 11L , Monocytes (%) (Auto) 10, Eosinophils (%) (Auto) 2, Basophils (%) (Auto) 0, Neutrophils # (Auto) 8.5H, Lymphocytes # (Auto) 1.2, Monocytes # (Auto) 1.1H, Eosinophils # (Auto) 0.2, Basophils # (Auto) 0.0, Sodium Level 143, Potassium L evel 3.4L, Chloride Level 108H, Carbon Dioxide Level 24, Anion Gap 11, Blood Urea Nitrogen 8, Creatinine 1.26, Estimat Glomerular Filtration Rate > 60, BUN/Creatinine Ratio 6, Glucose Level 88, Calcium Level 8.3L, Corrected Calcium 9.3, Magnesium Level 1.8, Total Bilirubin 0.5, Aspartate Amino Transf (AST/SGOT) 25, Alanine Aminotransferase (ALT/SGPT) 9, Alkaline Phosphatase 74, Total Protein 6.0L, Albumin 2.8L 12/15/19 05:37: White Blood Count 8.9, Red Blood Count 3.70L, Hemoglobin 9.2L, Hematocrit 29L, Mean Corpuscular Volume 78L, Mean Corpuscular Hemoglobin 25, Mean Corpuscular Hemoglobin Concent 32, Red Cell Distribution Width 16.2H, Platelet Count 429H, Mean Platelet Volume 9.1, Neutrophils (%) (Auto) 77H, Lymphocytes (%) (Auto) 11L , Monocytes (%) (Auto) 10, Eosinophils (%) (Auto) 3, Basophils (%) (Auto) 0, Neutrophils # (Auto) 6.8, Lymphocytes # (Auto) 1.0, Monocytes # (Auto) 0.9, Eosinophils # (Auto) 0.3, Basophils # (Auto) 0.0, Sodium Level 141, Potassium Level 3.2L, Chloride Level 107, Carbon Dioxide Level 24, Anion Gap 10, Blood Urea Nitrogen 7, Creatinine 1.18, Estimat Glomerular Filtration Rate > 60, BUN/Creatinine Ratio 6, Glucose Level 92, Calcium Level 7.8L, Corrected Calcium 9.1, Magnesium Level 1.7, Total Bilirubin 0.3, Aspartate Amino Transf (AST/SGOT) 17, Alanine Aminotransferase (ALT/SGPT) 10, Alkaline Phosphatase 73, Total Protein 5.2L, Albumin 2.4L Microbiology 12/12/19 Blood Culture - Preliminary, Resulted No growth 12/12/19 Gram Stain - Final, Resulted 12/12/19 Wound Culture - Preliminary, Resulted Proteus species Gram Negative Jos Gram Positive Cocci Assessment/Plan Assessment/Plan Assess & Plan/Chief 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 on abx. please read HPI for further instructions. will consult wound care. Clinical Quality Measures DVT/VTE Risk/Contraindication: Risk Factor Score Per Nursin RFS Level Per Nursing on Admit: 4+=Very High ABY ROBERTO MD Dec 15, 2019 10:36
--- NOTE | 2019-12-15 10:44 | Physical Therapy Evaluation ---
PT Evaluation-General Medical Diagnosis Admission Date Dec 12, 2019 at 10:50 Medical Diagnosis: ileus Onset Date: Dec 12, 2019 Therapy Diagnosis Therapy Diagnosis: impaired mobility, strength, endurance Height/Weight Height (Feet): 6 Height (Inches): 1 Weight (Pounds): 165 Weight (Ounces): 7.0 Precautions Precautions/Isolations: Standard Precautions Referral Physician: Nina Rudolph DO Reason for Referral: Evaluation/Treatment Medical History Additional Medical History PAST MEDICAL HISTORY: Ulcerative colitis. PAST SURGICAL HISTORY: Subtotal colectomy with ileostomy placement 07/2014, left ankle and right middle finger surgery, excision of abdominal wall fistula and partial resection of rectal stump 12/06/2019. Reviewed History: Yes Social History Home: Single Level Current Living Status: Alone Patient states he has "just a few steps" to enter his home. Prior Prior Level of Function SCALE: Activities may be completed with or without assistive devices. 2-Knoqvvkspi-gayntnp completes the activity by him/herself with no assistance from a helper. 5-Set-up or Clean-up Assistance-helper sets up or cleans up; patient completes activity. [place] assists only prior to or following the activity. 4-Supervision or Touching Assistance-helper provides verbal cues and/or touching/steadying and/or contact guard assistance as patient completes activity. Assistance may be provided throughout the activity or intermittently. 3-Partial/Moderate Assistance-helper does LESS THAN HALF the effort. [place] lifts, holds or supports trunk or limbs, but provides less than half the effort. 2-Substantial/Maximal Assistance-helper does MORE THAN HALF the effort. [place] lifts or holds trunk or limbs and provides more than half the effort. 3-Qojhtzrsd-cchwip does ALL the effort. Patient does none of the effort to complete the activity. Or, the assistance of 2 or more helpers is required for the patient to complete the activity. If activity was not attempted, code reason: 7-Patient Refused. 9-Not Applicable-not attempted and the patient did not perform the activity before the current illness, exacerbation or injury. 10-Not Attempted due to Environmental Limitations-(lack of equipment, weather restraints, etc.). 88-Not Attempted due to Medical Conditions or Safety Concerns. Bed Mobility: 6 Transfers (B,C,W/C): 6 Indoor Mobility (Ambulation): Independent Patient is unclear about this area, he says he only ambulated short distances in his home using a rolling walker PT Evaluation-Current Subjective Patient in bed pre tx, agrees to PT, has 5/10 pain in abdomen. Pt/Family Goals "to be independent at home Objective Patient Orientation: Person, Place, Situation Attachments: IV wound vac ROM/Strength ROM Lower Extremities WNL Strength Lower Extremities 4/5 gross BLE Sensory Vision: Functional Hearing: Functional Sensation Right Lower Extremit: Intact Sensation Left Lower Extremity: Intact Transfers Roll Left to Right (QC): 6 Lying to Sitting/Side of Bed(Q: 6 Sit to Stand (QC): 3 Chair/Yhj-qq-Wyves Xfer(QC): 4 Patient needs min assist for sit to stand, CGA for transfers Gait Does the Patient Walk?: Yes Mode of Locomotion: Walk Anticipated Mode of Locomotion: Walk Walk 10 feet (QC): 4 Distance: 10' Gait Assistive Device: FWW Comments/Gait Description ambulated 10' with a rolling walker with CGA, slow but steady ambulation Balance Sitting Static: Normal Sitting Dynamic: Normal Standing Static: Good Standing Dynamic: Good Treatment BLE seated exercises x20 (AP, LAQ) Assessment/Needs Patient has impaired mobility, strength, endurance. Needs min assist to stand. Ambulates short distance. Patient in recliner post tx with nurse call, phone, tray, all needs met. Advised patient to use nurse call if he has to get up or back into bed due to impaired strength and endurance. 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 Goals PT Correction Goals Time Frame: Dec 22, 2019 Roll Left & Right (QC): 6 Sit to Lying (QC): 6 Lying-Sitting on Side/Bed(QC): 6 Sit to Stand (QC): 6 Chair/Dtl-kn-Troqz Xfer(QC): 6 Walk 10 feet (QC): 5 Walk 50ft with 2 Turns (QC): 5 PT Plan Problem List Problem List: Activity Tolerance, Functional Strength, Safety, Balance, Gait, Transfer Treatment/Plan Treatment Plan: Continue Plan of Care Treatment Plan: Education, Functional Activity [place], Functional Strength, Gait, Safety, Therapeutic Exercise, Transfers Treatment Duration: Dec 22, 2019 Frequency: 6 times per week Estimated Hrs Per Day: .25 hour per day Patient and/or Family Agrees t: Yes Safety Risks/Education Patient Education: Gait Training, Transfer Techniques, Correct Positioning, Safety Issues Teaching Recipient: Patient Teaching Methods: Demonstration, Discussion Response to Teaching: Reinforcement Needed Discharge Recommendations Plan Patient will perform bed mobility and transfer training, balance and endurance training, functional strengthening, stair training, gait training, and education, to improve functional mobility and independence at home. Therapy Discharge Recommendati: Home & Family Time/GCodes Time In: 1020 Time Out: 1030 Total Billed Treatment Time: 10 Total Billed Treatment 1 visit JERMAN CUEVAS PT Dec 15, 2019 10:44
--- NOTE | 2019-12-15 11:37 | Occupational Therapy Eval ---
OT Evaluation-General/PLF Medical Diagnosis Admission Date Dec 12, 2019 at 10:50 Medical Diagnosis: ileus Onset Date: Dec 12, 2019 Therapy Diagnosis Therapy Diagnosis: decreased ADLs/functional mobility Height/Weight Height (Feet): 6 Height (Inches): 1 Weight (Pounds): 165 Weight (Ounces): 7.0 Precautions Precautions/Isolations: Standard Precautions Referral Physician: Nina Rudolph DO Referral Reason: Evaluation/Treatment Medical History Additional Medical History Ulcerative Colitis, subtotal colectomy with ileostomy placement 07/2014, excision of abdominal wall fistula and partial resection of rectal stump 12/06/2019, Current History Pt had increasing abdominal pain since surgery, presenting to the ER due to pain. Reviewed History: Yes Social History Home: Single Level Current Living Status: Alone ADL-Prior Level of Function SCALE: Activities may be completed with or without assistive devices. 9-Fmkrzgmuzf-eriztlv completes the activity by him/herself with no assistance from a helper. 5-Set-up or Clean-up Assistance-helper sets up or cleans up; patient completes activity. [place] assists only prior to or following the activity. 4-Supervision or Touching Assistance-helper provides verbal cues and/or touching/steadying and/or contact guard assistance as patient completes activity. Assistance may be provided throughout the activity or intermittently. 3-Partial/Moderate Assistance-helper does LESS THAN HALF the effort. [place] lifts, holds or supports trunk or limbs, but provides less than half the effort. 2-Substantial/Maximal Assistance-helper does MORE THAN HALF the effort. [place] lifts or holds trunk or limbs and provides more than half the effort. 3-Uniilvfjm-oudlfr does ALL the effort. Patient does none of the effort to complete the activity. Or, the assistance of 2 or more helpers is required for the patient to complete the activity. If activity was not attempted, code reason: 7-Patient Refused. 9-Not Applicable-not attempted and the patient did not perform the activity before the current illness, exacerbation or injury. 10-Not Attempted due to Environmental Limitations-(lack of equipment, weather restraints, etc.). 88-Not Attempted due to Medical Conditions or Safety Concerns. ADL PLOF Comments Pt reports living alone but his mother comes and checks on him often. He sleeps on the floor on a foam pad "like what goes on a couch". He performs functional mobility with short distances using FWW around his house. He receives help from his mom with ADLs, stating he only completes up to 25% of ADLs independently. On worse days he requires up to 100% assistance with ADLs. He has a tub shower with a plastic chair that he uses. Self Care: Needed Some Help Functional Cognition: Independent DME/Equipment: Tub/Shower DME/Equipment Comments FWW OT Current Status Subjective Pt agreeable to OT evaluation/tx on this date. He reports 6/10 pain in his abdomen. Mental Status/Objective Patient Orientation: Person, Place, Time, Situation Attachments: Colostomy/Ileostomy, IV, Other-See Comments (wound vac) Current Glasses/Contacts: Yes Hearing Aids: No Dentures/Partials: No Upper Extremity ROM WFL Upper Extremity Coordination WFL Upper Extremity Sensation pt denies tingling/numbness BUEs Upper Extremity Strength grossly 3+/5, reports increased abdominal pain with RUE MMT. Other Treatments OT educated pt on purpose and benefits of OT, he verbalized understanding. Pt provided information about PLOF and home set up, stating he sleeps on a foam pad on the floor and requires anywhere between 75-100% assistance with ADLs. Pt participated in UE screen, reporting increased abdominal pain with resistance to his right arm. OT educated pt on POC while he is admitted to the hospital, he verbalized understanding. Post OT tx, pt seated in recliner, call light in reach and all needs met. Education OT Patient Education: Correct positioning, Energy conservation, Modified ADL techniques, Progress toward Goal/Update tx plan, Purpose of tx/functional activities, Safety issues Teaching Recipient: Patient Teaching Methods: Discussion Response to Teaching: Verbalize Understanding OT Alf Goals Alf Goals Time Frame: December 29, 2019 Eating (QC): 6 Oral Hygiene (QC): 6 Toileting Hygiene (QC): 4 Shower/Bathe Self (QC): 3 Upper Body Dressing (QC): 3 Lower Body Dressing (QC): 2 On/Off Footwear (QC): 3 1=Demonstrate adherence to instructed precautions during ADL tasks. 2=Patient will verbalize/demonstrate understanding of assistive devices/modifications for ADL. 3=Patient will improve strength/tolerance for activity to enable patient to pe rform ADL's. OT Education/Plan Problem List/Assessment Assessment: Decreased Activ Tolerance, Decreased UE Strength, Impaired Funct Balance, Impaired I ADL's, Impaired Self-Care Skills Pt would benefit from skilled OT services in order to increase independence and safety with ADLs. At current function, he has decreased functional endurance, impaired functional balance, and is experiencing abdominal pain with activity. Discharge Recommendations Plan/Recommendations: Continue POC Treatment Plan/Plan of Care Treatment,Training & Education: Yes Patient would benefit from OT for education, treatment and training to promote independence in ADL's, mobility, safety and/or upper extremity function for ADL's. Plan of Care: ADL Retraining, Functional Mobility, UE Funct Exercise/Act Treatment Duration: December 29, 2019 Frequency: 5 times per week Estimated Hrs Per Day: .25 hour per day Rehab Potential: Fair Time/GCodes Start Time: 10:30 Stop Time: 10:40 Total Time Billed (hr/min): 10 Billed Treatment Time 1, PATY BAXTER OT Dec 15, 2019 11:37
--- NOTE | 2019-12-15 14:47 | NUR ---
CM/SS: Visited with pt as to plan for discharge. Plan: When deemed appropriate, pt will return home with home care Summary: Pt reports he has used home care services in the past. He has used [facility]. The worker shares with pt that she will send over paperwork for home care services for when he is dismissed. Pt verbalizes understanding. Call from [facility] - they will need to decline the referral as they do not take [place] Medicaid.
[2019-12-15] MEDS: ENOXAPARIN 40 MG/0.4 ML (LOVENOX) SYR SC SCH (16:11)
[2019-12-16] MEDS: PIPERACILLIN/TAZO 4.5 GM/NS 100 ML IV SCH ×4 (00:59→08:35)
[2019-12-16] MEDS: fentaNYL INJECTION 100 MCG/2 ML AMP IV PRN ×2 (00:59→05:26)
[2019-12-16] MEDS: LACTATED RINGERS 1,000 ML IV SCH ×3 (02:38→15:28)
[2019-12-16] MEDS: HYDROcodone/APAP 10 MG/325 MG (LORTAB) TAB PO PRN ×3 (03:11→15:29)
[2019-12-16 04:13] VITALS: BP 149/80
[2019-12-16] MEDS: KCL 20 MEQ POWDER FOR ORAL SOLUTION PO SCH (05:25)
[2019-12-16] MEDS: VANCOMYCIN 1 GM/NS 250 ML IVPB IV SCH ×2 (05:25)
[2019-12-16 06:05] LABS: BASOPHILS # (AUTO) 0.1 10^3/uL (0.0-0.1); BASOPHILS % (AUTO) 1 % (0-10); EOSINOPHILS # (AUTO) 0.4 10^3/uL (0.0-0.3); EOSINOPHILS % (AUTO) 4 % (0-10); HEMATOCRIT 29 % (40-54); HEMOGLOBIN 9.2 G/DL (13.3-17.7); LYMPHOCYTES # (AUTO) 1.1 X 10^3 (1.0-4.0); LYMPHOCYTES % (AUTO) 12 % (12-44); MEAN CORPUSCULAR HEMOGLOBIN 25 PG (25-34); MEAN CORPUSCULAR HGB CONC 32 G/DL (32-36); MEAN CORPUSCULAR VOLUME 78 FL (80-99); MEAN PLATELET VOLUME 8.8 FL (7.4-10.4); MONOCYTES % (AUTO) 11 % (0-12); NEUTROPHILS # (AUTO) 6.6 X 10^3 (1.8-7.8); NEUTROPHILS % (AUTO) 73 % (42-75); PLATELET COUNT 499 10^3/uL (130-400); RED CELL DISTRIBUTION WIDTH 16.6 % (10.0-14.5); WHITE BLOOD COUNT 9.1 10^3/uL (4.3-11.0)
[2019-12-16 06:32] LABS: ALANINE AMINOTRANSFERASE 12 U/L (0-55); ALBUMIN 2.5 GM/DL (3.2-4.5); ALKALINE PHOSPHATASE 71 U/L (40-136); BILIRUBIN,TOTAL 0.2 MG/DL (0.1-1.0); BUN/CREATININE RATIO 7; CALCIUM 7.8 MG/DL (8.5-10.1); CARBON DIOXIDE 22 MMOL/L (21-32); CHLORIDE 111 MMOL/L (98-107); CREATININE SERUM 1.33 MG/DL (0.60-1.30); GFR ESTIMATED > 60; GLUCOSE 96 MG/DL (70-105); POTASSIUM 3.9 MMOL/L (3.6-5.0); SODIUM 142 MMOL/L (135-145); TOTAL PROTEIN 5.2 GM/DL (6.4-8.2)
[2019-12-16] MEDS ORDERED: KCL 10 MEQ TAB (MICRO K) PO SCH (07:00)
[2019-12-16 08:00] VITALS: BP 132/70
[2019-12-16] MEDS: KETOROLAC 15 MG/ML VIAL IV PRN (08:35)
[2019-12-16] MEDS: FAMOTIDINE 20MG/2ML IV (PEPCID) IV SCH (08:35)
--- NOTE | 2019-12-16 09:58 | Progress Note - Hospitalist ---
Subjective HPI/CC On Admission Date Seen by Provider: Dec 16, 2019 Time Seen by Provider: 10:15 CC: Medical management of UC patient with psychiatric issues during complicated wound HPI: This is a very debilitated 29yoWM w/h/o UC s/p multiple abdominal intestinal surgeries who underwent surgery for rectal stump revision on 12/06/19 who presented with complicated wound and ileus. Patient very difficult to obtain any information from and he appears to be unmotivated. Very difficult to manage considering patient and his mother want to "fire" all of the doctors taking care of him. Subjective/Events-last exam Patient doing better Very difficult to motivate on an ongoing basis worse when he is ill Always asks for more and more pain meds Chronic narcotic dependence noted Potassium low level resolved 3.9 today Wound care visits will be arranged Omnicef will be given for DC abx Review of Systems General: Fatigue Gastrointestinal: Abdominal Pain Objective Exam Vital Signs Vital Signs Date Time Temp Pulse Resp B/P (MAP) Pulse Ox O2 Delivery O2 Flow Rate FiO2 12/16/19 12:00 36.5 73 20 139/79 (99) 98 Room Air Capillary Refill : NONE General Appearance: No Apparent Distress, WD/WN, Chronically ill Respiratory: Chest Non Tender, Lungs Clear, Normal Breath Sounds, No Accessory Muscle Use, No Respiratory Distress Cardiovascular: Regular Rate, Rhythm, No Edema, No Gallop, No JVD, No Murmur, Normal Peripheral Pulses Neurologic/Psychiatric: Alert, Oriented x3, No Motor/Sensory Deficits, Normal Mood/Affect Results/Procedures Lab Laboratory Tests 12/16/19 05:45 12/16/19 05:55 Patient resulted labs reviewed. Assessment/Plan Assessment and Plan Assess & Plan/Chief Complaint Assessment: Complex abdominal wound on abx empirically and wound vac setting up wound care visits and PO abx Psychiatric issues Smoker UC Ileus hx Hypokalemia now resolved DVT PPx on Lovenox Poor motivation Plan: Potassium supplement IV yesterday now on PO Pain meds Ambulate PT consult Wound care Diagnosis/Problems Diagnosis/Problems (1) Incisional infection Status: Acute (2) Ileus Status: Acute (3) Nausea and vomiting Status: Acute Qualifiers: Vomiting type: unspecified Vomiting Intractability: non-intractable Qualified Codes: R11.2 - Nausea with vomiting, unspecified (4) Hx of ulcerative colitis Status: Acute (5) Narcotic abuse, continuous Status: Acute (6) Drug-seeking behavior Status: Acute (7) Chronic pain Status: Acute Clinical Quality Measures DVT/VTE Risk/Contraindication: Risk Factor Score Per Nursin RFS Level Per Nursing on Admit: 4+=Very High JOVANA CHAPARRO DO Dec 16, 2019 09:58
--- NOTE | 2019-12-16 10:52 | Occupational Ther Daily Note ---
OT Current Status-Daily Note Subjective Pt laying in bed at start of session, agreeable to OT tx. He reports abdominal pain but does not verbalize pain rating. Mental Status/Objective Patient Orientation: Normal For Age Attachments: Colostomy/Ileostomy, IV ADL-Treatment Therapy Code Descriptions/Definitions Functional [place] Measure: 0=Not Assessed/NA 4=Minimal Assistance 1=Total Assistance 5=Supervision or Setup 2=Maximal Assistance 6=Modified [place] 3=Moderate Assistance 7=Complete IndependenceSCALE: Activities may be completed with or without assistive devices. 4-Kqocgnkpol-ovweozv completes the activity by him/herself with no assistance from a helper. 5-Set-up or Clean-up Assistance-helper sets up or cleans up; patient completes activity. [place] assists only prior to or following the activity. 4-Supervision or Touching Assistance-helper provides verbal cues and/or touching/steadying and/or contact guard assistance as patient completes activity. Assistance may be provided throughout the activity or intermittently. 3-Partial/Moderate Assistance-helper does LESS THAN HALF the effort. [place] lifts, holds or supports trunk or limbs, but provides less than half the effort. 2-Substantial/Maximal Assistance-helper does MORE THAN HALF the effort. [place] lifts or holds trunk or limbs and provides more than half the effort. 0-Wjreslbws-uawjwy does ALL the effort. Patient does none of the effort to complete the activity. Or, the assistance of 2 or more helpers is required for the patient to complete the activity. If activity was not attempted, code reason: 7-Patient Refused. 9-Not Applicable-not attempted and the patient did not perform the activity before the current illness, exacerbation or injury. 10-Not Attempted due to Environmental Limitations-(lack of equipment, weather restraints, etc.). 88-Not Attempted due to Medical Conditions or Safety Concerns. On/Off Footwear: 3 (Pt able to don L sock using sock aide after OT donned sock onto sock aide.) Other Treatment Pt laying in bed reporting abdominal pain/swelling and states he is not sure how much he is able to to. OT informed pt she would like to educate him on AE, he agreed. OT educated pt on using a reach to don/doff pants with demo, and educated pt on donning socks with a sock aide. After OT donned sock onto the sock aide, pt agreed to trial donning sock onto his left foot supine. OT handed pt device and he was able to don L sock successfully. Pt verbalized understanding of AE but declined trialing devices due to his pain. Post OT session, pt laying in bed, call light in reach and all needs met. Further education and trials with AE recommended. Education OT Patient Education: Correct positioning, Energy conservation, Modified ADL techniques, Progress toward Goal/Update tx plan, Purpose of tx/functional activities, Use of adapted equipment Teaching Recipient: Patient Teaching Methods: Demonstration, Discussion Response to Teaching: Verbalize Understanding OT Penitentiary Goals Penitentiary Goals Time Frame: December 29, 2019 Eating (QC): 6 Oral Hygiene (QC): 6 Toileting Hygiene (QC): 4 Shower/Bathe Self (QC): 3 Upper Body Dressing (QC): 3 Lower Body Dressing (QC): 2 On/Off Footwear (QC): 3 1=Demonstrate adherence to instructed precautions during ADL tasks. 2=Patient will verbalize/demonstrate understanding of assistive devices/modifications for ADL. 3=Patient will improve strength/tolerance for activity to enable patient to perform ADL's. OT Education/Plan Problem List/Assessment Assessment: Decreased Activ Tolerance, Decreased UE Strength, Impaired I ADL's, Impaired Self-Care Skills Pt would benefit from skilled OT services in order to increase independence and safety with ADLs. At current function, he has decreased functional endurance, impaired functional balance, and is experiencing abdominal pain with activity. Discharge Recommendations Plan/Recommendations: Continue POC Treatment Plan/Plan of Care Treatment,Training & Education: Yes Patient would benefit from OT for education, treatment and training to promote independence in ADL's, mobility, safety and/or upper extremity function for ADL's. Plan of Care: ADL Retraining, Functional Mobility, UE Funct Exercise/Act Treatment Duration: December 29, 2019 Frequency: 5 times per week Estimated Hrs Per Day: .25 hour per day Rehab Potential: Fair Time/GCodes Start Time: 10:32 Stop Time: 10:40 Total Time Billed (hr/min): 8 Billed Treatment Time 1, ADL PATY FUNEZ OT Dec 16, 2019 10:52
[2019-12-16 12:00] VITALS: BP 139/79
[2019-12-16] MEDS ORDERED: cefTRIAXone 2,000 MG/SWFI 20 ML IV PUSH IV SCH ×2 (12:00)
--- NOTE | 2019-12-16 13:14 | Progress Note ---
Subjective Date Seen by a Provider: Dec 16, 2019 Time Seen by a Provider: 09:40 Subjective/Events-last exam Patient seen with Dr. Castro. Patient reports that his pain has improved since he was admitted, but keeps asking for more pain meds. Appears to be resting comfortably upon exam. Tolerating diet and ambulating. SS and wound care working on home wound vac for patient. Objective Exam Vital Signs Date Time Temp Pulse Resp B/P (MAP) Pulse Ox O2 Delivery O2 Flow Rate FiO2 12/16/19 12:00 36.5 73 20 139/79 (99) 98 Room Air 12/16/19 08:00 36.3 86 16 132/70 (90) 97 Room Air 12/16/19 08:00 Room Air 12/16/19 04:13 37.3 75 22 149/80 (103) 95 Room Air 12/15/19 23:36 37.2 85 18 131/88 (102) 96 Room Air 12/15/19 20:00 Room Air 12/15/19 19:30 37.4 83 24 146/74 (98) 96 Room Air 12/15/19 16:00 37.2 83 20 135/82 (99) 98 Room Air I & O 12/16/19 07:00 Intake Total 8130 ml Output Total 3015 ml Balance 5115 ml Capillary Refill : Less Than 3 SecondsLess Than 3 Seconds General Appearance: No Apparent Distress, WD/WN Neck: Full Range of Motion, Normal Inspection, Supple Respiratory: Normal Breath Sounds, No Accessory Muscle Use, No Respiratory Distress Cardiovascular: Regular Rate, Rhythm, No Murmur Gastrointestinal: normal bowel sounds, soft, tenderness (to palpation, diffuse), other (Right ileostomy functioning) Extremity: Normal Capillary Refill, Normal Inspection, Normal Range of Motion Neurologic/Psychiatric: Alert, Oriented x3 Skin: Normal Color, Warm/Dry, Other (Midline abdominal incision C/D/I with skin jose in place as well as wound vac on inferior portion of incision. No redness noted.) Results Lab Laboratory Tests 12/16/19 05:45: Sodium Level 142, Potassium Level 3.9, Chloride Level 111H, Carbon Dioxide Level 22, Anion Gap 9, Blood Urea Nitrogen 9, Creatinine 1.33H, Estimat Glomerular Filtration Rate > 60, BUN/Creatinine Ratio 7, Glucose Level 96, Calcium Level 7.8L, Corrected Calcium 9.0, Total Bilirubin 0.2, Aspartate Amino Transf (AST/SGOT) 19, Alanine Aminotransferase (ALT/SGPT) 12, Alkaline Phosphatase 71, Total Protein 5.2L, Albumin 2.5L 12/16/19 05:55: White Blood Count 9.1, Red Blood Count 3.64L, Hemoglobin 9.2L, Hematocrit 29L, Mean Corpuscular Volume 78L, Mean Corpuscular Hemoglobin 25, Mean Corpuscular Hemoglobin Concent 32, Red Cell Distribution Width 16.6H, Platelet Count 499H, Mean Platelet Volume 8.8, Neutrophils (%) (Auto) 73, Lymphocytes (%) (Auto) 12, Monocytes (%) (Auto) 11, Eosinophils (%) (Auto) 4, Basophils (%) (Auto) 1, Neutrophils # (Auto) 6.6, Lymphocytes # (Auto) 1.1, Monocytes # (Auto) 1.0, Eosinophils # (Auto) 0.4H, Basophils # (Auto) 0.1 Microbiology 12/12/19 Blood Culture - Preliminary, Resulted No growth 12/12/19 Gram Stain - Final, Resulted 12/12/19 Wound Culture - Preliminary, Resulted Proteus species Escherichia coli Gram Positive Cocci See Comments Assessment/Plan Assessment/Plan Assess & Plan/Chief 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 on abx. VSS Tolerating diet and working with PT Will do outpatient wound vac consult, and once patient has been setup for home wound vac, he may be DC'd home. Clinical Quality Measures DVT/VTE Risk/Contraindication: Risk Factor Score Per Nursin RFS Level Per Nursing on Admit: 4+=Very High INDIRA ARCHIBALD ENGINE SPECIALIST Dec 16, 2019 13:14
[2019-12-16] MEDS ORDERED: CEFD300C3 PO (13:16)
[2019-12-16] MEDS ORDERED: HYDR-4227 PO (13:16)
--- NOTE | 2019-12-16 13:18 | Discharge Inst-Surgical ---
D/C Lap Instructions-EMILO Reconcile Patient Problems Problems Reviewed?: Yes New, Converted, or Re-Newed RX: RX on Chart Follow Up Appt in 1 weeks Outpatient wound care for wound vac Activity as tolerated No driving while on pain medications Incentive Spirometry use every 2 hours while awake Regular Diet Symptoms to Report: Fever over 101 degree F, Nausea/Vomiting Infection Signs and Symptoms to report: Increased redness, Foul odor of wound, Increased drainage Bathing instructions: May shower Operative Area Clean/Dry; Keep incision clean/dry If any problems/questions: Contact your physician or go to Emergency Room INDIRA ARCHIBALD APRN Dec 16, 2019 13:18
--- NOTE | 2019-12-16 13:49 | Physical Therapy Daily Note ---
PT Daily Note-Current Subjective Pt in bed, agreeable to get up to chair. Rates pain 9/10 in abdomen, reports "it's really swollen today". Pt reports "I didn't really walk around much at all at home. My chronic pain got so bad, I have someone do pretty much everything for me". Pain Numeric Pain Scale: 9 Location: Lower Location Body Site: Abdomen Pain Description: Pressure Mental Status Patient Orientation: Person, Place, Time, Situation Attachments: Colostomy/Ileostomy, Other-See Comments (wound vac), IV Transfers SCALE: Activities may be completed with or without assistive devices. 1-Wjfbgxlvkl-ussbvuk completes the activity by him/herself with no assistance from a helper. 5-Set-up or Clean-up Assistance-helper sets up or cleans up; patient completes activity. [place] assists only prior to or following the activity. 4-Supervision or Touching Assistance-helper provides verbal cues and/or touching/steadying and/or contact guard assistance as patient completes activity. Assistance may be provided throughout the activity or intermittently. 3-Partial/Moderate Assistance-helper does LESS THAN HALF the effort. [place] lifts, holds or supports trunk or limbs, but provides less than half the effort. 2-Substantial/Maximal Assistance-helper does MORE THAN HALF the effort. [place] lifts or holds trunk or limbs and provides more than half the effort. 2-Jtpbqfgwx-spcfgk does ALL the effort. Patient does none of the effort to complete the activity. Or, the assistance of 2 or more helpers is required for the patient to complete the activity. If activity was not attempted, code reason: 7-Patient Refused. 9-Not Applicable-not attempted and the patient did not perform the activity before the current illness, exacerbation or injury. 10-Not Attempted due to Environmental Limitations-(lack of equipment, weather restraints, etc.). 88-Not Attempted due to Medical Conditions or Safety Concerns. Sit to Lying (QC): 3 Sit to Stand (QC): 6 Chair/Rqg-hr-Cerqn Xfer(QC): 6 Pt able to transfer bed->chair x 5' without AD, mod (I). Pt (I) managed IV line and stepped over wound vac tubing without LOB. Weight Bearing Right Lower Extremity: Right Full Weight Bearing Left Lower Extremity: Left Full Weight Bearing Gait Training Does the Patient Walk?: Yes Distance: 5 Gait Persons Needed: 1 Gait Assistive Device: None Pt agreeable to up chair. Treatments Bed->chair transfer. Up in chair with all needs met. Assessment Current Status: Fair Progress Pt demonstrated good balance, safe gait with transfer to chair. Self-limits acti vity. PT Prison Goals Charrer Goals PT Charrer Goals Time Frame: Dec 22, 2019 Roll Left & Right (QC): 6 Sit to Lying (QC): 6 Lying-Sitting on Side/Bed(QC): 6 Sit to Stand (QC): 6 Chair/Khf-jl-Ropxg Xfer(QC): 6 Walk 10 feet (QC): 5 Walk 50ft with 2 Turns (QC): 5 PT Plan Problem List Problem List: Activity Tolerance, Functional Strength, Safety, Balance, Gait, Transfer, Bed Mobility Treatment/Plan Treatment Plan: Continue Plan of Care Treatment Plan: Bed Mobility, Education, Functional Activity [place], Functional Strength, Gait, Safety, Therapeutic Exercise, Transfers Treatment Duration: Dec 22, 2019 Frequency: 6 times per week Estimated Hrs Per Day: .25 hour per day Patient and/or Family Agrees t: Yes Time/GCodes Time In: 1109 Time Out: 1119 Total Billed Treatment Time: 10 Total Billed Treatment 1, FA x 10' KRISHNA DENSON DPNick Dec 16, 2019 13:49
--- NOTE | 2019-12-16 15:30 | NUR ---
Spoke with pt in reference to home wound VAC. Explained handout, trouble shooting, VAC operation, Dressing change and phone numbers to call and ask for help. Handout and Dressing supplies left with pt. Pt verbalized understanding.
[2019-12-16 16:00] VITALS: BP 131/72
--- NOTE | 2019-12-16 16:03 | NUR ---
CM/SS: Visited with pt as to plan for discharge Plan: Pt will return home with out patient wound care Summary: Visited with pt as to plan for discharge. Pt lives locally. Options for discharged discussed. Pt informed that he has been denied home care services as he has [place] Medicaid and lives in [place], and that his [place] Medicaid has not been approved. Pt is asked about outpatient and has issues with adequate transportation. He is given option of care van and seems open to that. A facility is mentioned and pt seemed ok with that as well. Discussed with Jose Mederos, wound care and with [facility] surgeon. Eliezer is ok with pt going to out patient wound care. Appointment made for Dr. Beard office for Friday, December 19 at 9am. Information faxed to Dr. Beard office. Care Van [phone] - transportation arranged. They will medicinal plant picker and drop off pt for appointment. Pt is informed of the plan.
[2019-12-16] MEDS ORDERED: POTASSIUM BICARB 20 MEQ (EFFER-K) TABLET PO SCH (17:00)
--- NOTE | 2019-12-16 17:01 | NUR ---
MOTHER CALLED AND REVIEWED DC PLANS. MOTHER VERBALIZED UNDERSTANDING. WOUND NURSE HERE AND DRESSING CHANGED AND NEW WOUND VAC FOR HOME APPLIED. MOTHER NOTIFED PT READY FOR DISCHARGE.
[2019-12-16] MEDS: ENOXAPARIN 40 MG/0.4 ML (LOVENOX) SYR SC SCH (17:20)
--- NOTE | 2019-12-16 17:20 | NUR ---
REFUSED PO MEDS SINCE HE IS DISCHARGED.
--- NOTE | 2019-12-16 17:37 | NUR ---
MOTHER CALLED AND STATES NO TRANSPORTATION TO PICK HIM UP. NURSING REFRIGERATION MECHANIC HELPER CALLED TO ASK IF VOUCHER COULD BE USED TO SEND TO [place], [place]. PER GLORIA CHRISTIE, REFRIGERATION MECHANIC HELPER STATES IT IS OK TO USE VOUCHER TO SEND TO [facility]. LEWIS NOTIFIED THAT PT TO BE DC'D TO [address] [place], [place].
--- NOTE | 2019-12-16 17:46 | NUR ---
DC'D PER WC WITH TAXI TO [facility] TO MOTHERS HOME. DECLINED REVIEW OF DC INSTRUCTIONS, BUT MOTHER HAD ALREADY BEEN INSTRUCTED OVER PHONE. RX X 2 WITH DC PAPERS.
--- NOTE | 2019-12-17 12:11 | Progress Note ---
Subjective Date Seen by a Provider: Dec 16, 2019 Time Seen by a Provider: 11:00 Subjective/Events-last exam addendum to in-patient visit on 12/16/19. patient tolerating diet and functional end ileostomy. has large wound infection anterior abdomen which tunnels. management exceeds general surgery and would be better served with wound care. will consult outpatient wound care. Objective Exam Vital Signs Date Time Temp Pulse Resp B/P (MAP) Pulse Ox O2 Delivery O2 Flow Rate FiO2 12/16/19 16:00 36.7 79 18 131/72 (91) 99 Room Air I & O 12/17/19 07:00 Intake Total 1920 ml Output Total 1400 ml Balance 520 ml Capillary Refill : Less Than 3 SecondsLess Than 3 Seconds General Appearance: No Apparent Distress HEENT: PERRL/EOMI Neck: Full Range of Motion Respiratory: Chest Non Tender, Lungs Clear, Normal Breath Sounds Cardiovascular: Regular Rate, Rhythm Gastrointestinal: normal bowel sounds, soft, other (posterior aspect midline laparotomy open with some subcutaneous tissue necrosis and tunnels superiorly) Extremity: Normal Capillary Refill Neurologic/Psychiatric: Alert, Oriented x3 Skin: Normal Color Lymphatic: No Adenopathy Results Lab Microbiology 12/12/19 Blood Culture - Preliminary, Resulted No growth 12/12/19 Gram Stain - Final, Resulted 12/12/19 Wound Culture - Preliminary, Resulted Proteus vulgaris Escherichia coli Gram Positive Cocci See Comments Assessment/Plan Assessment/Plan Assess & Plan/Chief 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 addendum to in-patient visit on 12/16/19. patient tolerating diet and functional end ileostomy. has large wound infection anterior abdomen which tunnels. management exceeds general surgery and would be better served with wound care. will consult outpatient wound care. Clinical Quality Measures DVT/VTE Risk/Contraindication: Risk Factor Score Per Nursin RFS Level Per Nursing on Admit: 4+=Very High ABY ROBERTO MD Dec 17, 2019 12:11
== END 2019-12-16 17:51 | disposition home or self-care (01) | DRG 863 ==
LOC: EDUNIT# 08:50 → ER 08:51 → 4TH 10:50
PROVIDERS: ADMIT Surgery; ATTEND Surgery
DX: T81.41XA Infection following a procedure, superficial incisional surgical site, initial encounter (principal); K91.89 Other postprocedural complications and disorders of digestive system; K56.7 Ileus, unspecified; K51.90 Ulcerative colitis, unspecified, without complications; F11.20 Opioid dependence, uncomplicated; E87.6 Hypokalemia; F17.200 Nicotine dependence, unspecified, uncomplicated; G25.81 Restless legs syndrome; G47.9 Sleep disorder, unspecified; F31.9 Bipolar disorder, unspecified; D64.9 Anemia, unspecified; Z93.2 Ileostomy status; Z90.49 Acquired absence of other specified parts of digestive tract; Z86.14 Personal history of Methicillin resistant Staphylococcus aureus infection; Z91.19 Patient's noncompliance with other medical treatment and regimen; Z76.5 Malingerer [conscious simulation]
CPT/HCPCS: 36415; 71045; 74177; 80053; 80202; 83605; 83690; 83735; 85025; 85610; 85730; 86141; 87040; 87070; 87077; 87186; 87205; 96361; 96365; 96375; 96376

== ENCOUNTER → 2019-12-20 | Outpatient (CLI) | payer MEDICAID ==
[~2019-12-20] MED LIST changes: +CEFD300C3 PO; +HYDR-4227 PO; +HYDR-4342 PO
== END ==
LOC: WOUNDCARE 08:33
PROVIDERS: ATTEND Surgery
DX: T81.31XA Disruption of external operation (surgical) wound, not elsewhere classified, initial encounter (principal); L98.492 Non-pressure chronic ulcer of skin of other sites with fat layer exposed; K51.913 Ulcerative colitis, unspecified with fistula; T65.222A Toxic effect of tobacco cigarettes, intentional self-harm, initial encounter; E44.1 Mild protein-calorie malnutrition
CPT/HCPCS: 11042; 97605

== ENCOUNTER → 2019-12-23 | Outpatient (CLI) | payer MEDICAID | LOC: WOUNDCARE 10:10 | PROVIDERS: ATTEND Surgery | DX: S31.109A Unspecified open wound of abdominal wall, unspecified quadrant without penetration into peritoneal cavity, initial encounter (principal); D64.9 Anemia, unspecified; K52.9 Noninfective gastroenteritis and colitis, unspecified; M86.9 Osteomyelitis, unspecified | CPT/HCPCS: 97605 ==

== ENCOUNTER → 2019-12-27 | Outpatient (CLI) | payer MEDICAID | LOC: WOUNDCARE 10:01 | PROVIDERS: ATTEND Surgery | DX: T81.31XA Disruption of external operation (surgical) wound, not elsewhere classified, initial encounter (principal); L98.492 Non-pressure chronic ulcer of skin of other sites with fat layer exposed; K51.913 Ulcerative colitis, unspecified with fistula; T65.222A Toxic effect of tobacco cigarettes, intentional self-harm, initial encounter; E44.1 Mild protein-calorie malnutrition | CPT/HCPCS: 11042; 97605 ==

== ENCOUNTER → 2019-12-30 | Outpatient (CLI) | payer MEDICAID | LOC: WOUNDCARE 10:14 | PROVIDERS: ATTEND Surgery | DX: T81.31XA Disruption of external operation (surgical) wound, not elsewhere classified, initial encounter (principal); D64.9 Anemia, unspecified; K52.9 Noninfective gastroenteritis and colitis, unspecified; M86.9 Osteomyelitis, unspecified | CPT/HCPCS: 97605 ==

== ENCOUNTER → 2020-01-03 | Outpatient (CLI) | payer MEDICAID | LOC: WOUNDCARE 09:56 | PROVIDERS: ATTEND Surgery | DX: T81.31XA Disruption of external operation (surgical) wound, not elsewhere classified, initial encounter (principal); L98.492 Non-pressure chronic ulcer of skin of other sites with fat layer exposed; K51.913 Ulcerative colitis, unspecified with fistula; T65.222A Toxic effect of tobacco cigarettes, intentional self-harm, initial encounter; E44.1 Mild protein-calorie malnutrition | CPT/HCPCS: 11042 ==

== ENCOUNTER → 2020-01-24 | Outpatient (CLI) | payer MEDICAID ==
--- NOTE | 2020-01-24 14:39 | Diagnostic Imaging Report ---
PROCEDURE: US Scrotum. TECHNIQUE: Multiple real-time grayscale images were obtained over the scrotum in various projections bilaterally. INDICATION: Testicular pain. FINDINGS: There are no prior studies available for comparison. Both testicles are identified. The right testicle measures 3.7 x 2.5 x 2.2 cm while the left testicle is estimated to be 3.5 x 1.8 x 2.5 cm. There is no evidence for a solid testicular mass and there is no sign of torsion. There is no evidence for epididymitis either; however, there is a small subcentimeter benign-appearing cyst in the epididymal head on the left. There is no significant hydrocele or varicocele formation. During the course of the exam, our sonologist did note a 0.7 x 2.8 cm lymph node in the right groin and a 0.8 x 3.2 cm lymph node in the left groin. These nodes are nonspecific. IMPRESSION: 1. There is no evidence for a solid testicular mass and there is no sign of torsion. 2. There is a small benign-appearing cyst in the epididymal head on the left. 3. There are small lymph nodes in each groin. Dictated by: Dictated on workstation # [id number]
== END ==
LOC: RAD 12:48
PROVIDERS: ATTEND Surgery
DX: N50.819 Testicular pain, unspecified (principal)
CPT/HCPCS: 76870

== ENCOUNTER → 2020-06-19 | Outpatient (CLI) | payer MEDICAID ==
[~2020-06-19] MED LIST changes: +HYDR-3817 PO; -HYDR-4342 PO
== END ==
LOC: RAD 09:45
PROVIDERS: ATTEND Internal Medicine
DX: R10.2 Pelvic and perineal pain (principal); Z53.9 Procedure and treatment not carried out, unspecified reason

== ENCOUNTER 2020-10-20 10:57 | Emergency (ER) | payer MEDICAID ==
[~2020-10-20] VITALS: Ht 182.9 cm; Wt 81.6 kg
[2020-10-20] MEDS ORDERED: KETOROLAC 30 MG/ML VIAL IVP STA (11:10)
[2020-10-20] MEDS ORDERED: ORPHENADRINE 60 MG/2 ML (NORFLEX) AMP (ED ONLY) IV STA (11:10)
--- NOTE | 2020-10-20 11:10 | ED Back Pain ---
General Chief Complaint: Abdominal/GI Problems Stated Complaint: BACK PAIN History of Present Illness Date Seen by Provider: Oct 20, 2020 Time Seen by Provider: 11:10 Initial Comments 30-year-old male presents with lower lumbar pain. Feels like he is having spasm in his left lower back that started last night. Patient has no acute injury. Patient reports a history of Crohn's and has an ostomy bag but no acute complaints with this. Patient denies fevers chills or urinary symptoms. The pain is a very lower lumbar area and not up in the flank. Gets worse with movement or palpation. He describes the pain more as a spasm and pain. Allergies and Home Medications Allergies Coded Allergies: prednisone (Unverified Allergy, Severe, SWELLING SOA, 06/19/14) methylprednisolone (Verified Allergy, Mild, 07/06/14) levofloxacin (Verified Allergy, Unknown, 07/06/14) ADDED-07/06/14 morphine (Unverified Adverse Reaction, Intermediate, HEADACHE, 06/19/14) Home Medications Cefdinir 300 Mg Capsule, 300 MG PO BID Prescribed by: INDIRA ARCHIBALD on 12/16/19 1316 Cyclobenzaprine HCl 10 Mg Tablet, 10 MG PO Q8H PRN for SPASMS Prescribed by: HAYLEY ROBINS on 10/20/20 1310 Hydrocodone/Acetaminophen 1 Each Tablet, 1-2 TAB PO Q4H Prescribed by: INDIRA ARCHIBALD on 12/16/19 1316 Naproxen 500 Mg Tablet, 500 MG PO BID Prescribed by: HAYLEY ROBINS on 10/20/20 1310 Patient Home Medication List Home Medication List Reviewed: Yes Review of Systems Constitutional: No chills, No fever EENTM: no symptoms reported Respiratory: no symptoms reported Cardiovascular: no symptoms reported Gastrointestinal: no symptoms reported Genitourinary: no symptoms reported Musculoskeletal: see HPI, back pain Skin: no symptoms reported Psychiatric/Neurological: No Symptoms Reported Past Jktxbrc-Igxqvc-Vazxdm Hx Patient Social History 2nd Hand Smoke Exposure: No Immunizations Up To Date Tetanus Booster (TDap): More than 5yrs Date of Influenza Vaccine: May 25, 2014 Seasonal Allergies Seasonal Allergies: No Past Medical History Surgeries: Yes (COLONOSCOPY X4, TEETH REMOVED,MOLES REMOVED,COLECTOMY/COLOSTOMY,LASER/ACNE) Abdominal, Appendectomy, Bowel Surgery, Orthopedic Respiratory: No Cardiac: No Neurological: Yes (RLS) Reproductive Disorders: No Sexually Transmitted Disease: No HIV/AIDS: No Gastrointestinal: Yes (ULCERATIVE COLITIS/ COLOSTOMY, 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) Crohns Disease Musculoskeletal: No Endocrine: No HEENT: No Loss of Vision: Denies Hearing Impairment: Denies Cancer: No Psychosocial: Yes Sleep Difficulties Integumentary: Yes (MRSA, CYSTIC ACNE) Blood Disorders: Yes (ANEMIA) Adverse Reaction/Blood Tranf: No Family Medical History Family history: Arthritis 03 MOTHER (fibra myalgia) Family history: Cardiovascular disease 03 FATHER (heart mirmur) Family history: Diabetes mellitus 09 BROTHER (brother has really low & high blood sugars) History of - respiratory disease 03 MOTHER (emphasemia) Heart Disease, COPD, Diabetes Physical Exam Vital Signs Vital Signs - First Documented 10/20/20 11:09 Temp 36.4 Pulse 88 Resp 17 B/P (MAP) 125/80 (95) O2 Delivery Room Air Capillary Refill : Height, Weight, BMI Height: 6'1" Weight: 165lbs. 7.0oz. [id number]; 26.30 BMI Method:Stated General Appearance: Mild Distress, Other (Very dramatic, when I evaluated him and even start palpate his back or abdomen he jumps in pain. 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 Norm as Tested Skin: Normal Color, Warm/Dry Progress/Results/Core Measures Results/Orders Lab Results Laboratory Tests Test 10/20/20 11:20 Range/Units White Blood Count 8.9 4.3-11.0 10^3/uL Red Blood Count 5.85 H 4.30-5.52 10^6/uL Hemoglobin 13.8 13.3-17.7 g/dL Hematocrit 44 40-54 % Mean Corpuscular Volume 76 L 80-99 fL Mean Corpuscular Hemoglobin 24 L 25-34 pg Mean Corpuscular Hemoglobin Concent 31 L 32-36 g/dL Red Cell Distribution Width 16.1 H 10.0-14.5 % Platelet Count 328 130-400 10^3/uL Mean Platelet Volume 10.0 9.0-12.2 fL Immature Granulocyte % (Auto) 0 % Neutrophils (%) (Auto) 71 42-75 % Lymphocytes (%) (Auto) 15 12-44 % Monocytes (%) (Auto) 10 0-12 % Eosinophils (%) (Auto) 4 0-10 % Basophils (%) (Auto) 1 0-10 % Neutrophils # (Auto) 6.3 1.8-7.8 10^3/uL Lymphocytes # (Auto) 1.3 1.0-4.0 10^3/uL Monocytes # (Auto) 0.9 0.0-1.0 10^3/uL Eosinophils # (Auto) 0.3 0.0-0.3 10^3/uL Basophils # (Auto) 0.1 0.0-0.1 10^3/uL Immature Granulocyte # (Auto) 0.0 0.0-0.1 10^3/uL Sodium Level 138 135-145 MMOL/L Potassium Level 3.9 3.6-5.0 MMOL/L Chloride Level 109 H 98-107 MMOL/L Carbon Dioxide Level 22 21-32 MMOL/L Anion Gap 7 5-14 MMOL/L Blood Urea Nitrogen 19 H 7-18 MG/DL Creatinine 0.86 0.60-1.30 MG/DL Estimat Glomerular Filtration Rate > 60 BUN/Creatinine Ratio 22 Glucose Level 91 70-105 MG/DL Calcium Level 8.6 8.5-10.1 MG/DL Corrected Calcium 8.7 8.5-10.1 MG/DL Total Bilirubin 0.6 0.1-1.0 MG/DL Aspartate Amino Transf (AST/SGOT) 20 5-34 U/L Alanine Aminotransferase (ALT/SGPT) 19 0-55 U/L Alkaline Phosphatase 72 40-136 U/L Total Protein 7.2 6.4-8.2 GM/DL Albumin 3.9 3.2-4.5 GM/DL My Orders Orders - ROBINS,HAYLEY L DO Lumbar Spine - 2-3 Views (10/20/20 11:10) Abdomen/Kub 1view (10/20/20 11:10) Ketorolac Injection (Toradol Injection) (10/20/20 11:10) Orphenadrine Inj (Ed Only) (Norflex Inje (10/20/20 11:10) Cbc With Automated Diff (10/20/20 11:10) Comprehensive Metabolic Panel (10/20/20 11:10) Drug Screen Stat (Urine) (10/20/20 11:10) Ua Culture If Indicated (10/20/20 11:10) Vital Signs/I&O 10/20/20 11:09 Temp 36.4 Pulse 88 Resp 17 B/P (MAP) 125/80 (95) O2 Delivery Room Air Progress Progress Note : Time: 13:08 Progress Note Patient's physical evaluation is consistent with a lower lumbar muscle spasm. He has no acute findings on x-ray and labs. Patient will be prescribed Naprosyn and Flexeril. He should follow-up with her primary care provider next week if symptoms or not improving Diagnostic Imaging Diagonstic Imaging: Xray Comments IMPRESSION: 1: There is no acute lumbar spine fracture or dislocation. 2: Grossly similar appearance of the spinal neurostimulator electrodes which are grossly unremarkable. Reviewed: Reviewed by Me, Reviewed/Discussed Departure Impression Primary Impression: Spasm of lumbar paraspinous muscle Additional Impression: Abdominal pain, chronic, bilateral lower quadrant Disposition: 01 HOME, SELF-CARE Condition: Stable Departure-Patient Inst. Referrals: [facility] (PCP/Family) Primary Care Physician Patient Instructions: Muscle Spasm ED, Using Heat for Pain Add. Discharge Instructions: Warm moist heat to affected area, 4% topical lidocaine with menthol to affected area as directed on package If symptoms or not improving by the middle of next week please follow-up with your primary care provider All discharge instructions reviewed with patient and/or family. Voiced understanding. Scripts Naproxen (Naprosyn) 500 Mg Tablet 500 MG PO BID, #30 TAB 0 Refills Prov: ROBINS,HAYLEY L DO 10/20/20 Cyclobenzaprine HCl (Cyclobenzaprine HCl) 10 Mg Tablet 10 MG PO Q8H PRN for SPASMS, #15 TAB 0 Refills Prov: ROBINS,HAYLEY L DO 10/20/20 ROBINS,HAYLEY L DO Oct 20, 2020 11:10
[2020-10-20 11:29] LABS: BASOPHILS # (AUTO) 0.1 10^3/uL (0.0-0.1); BASOPHILS % (AUTO) 1 % (0-10); EOSINOPHILS # (AUTO) 0.3 10^3/uL (0.0-0.3); EOSINOPHILS % (AUTO) 4 % (0-10); HEMATOCRIT 44 % (40-54); HEMOGLOBIN 13.8 g/dL (13.3-17.7); LYMPHOCYTES # (AUTO) 1.3 10^3/uL (1.0-4.0); LYMPHOCYTES % (AUTO) 15 % (12-44); MEAN CORPUSCULAR HEMOGLOBIN 24 pg (25-34); MEAN CORPUSCULAR HGB CONC 31 g/dL (32-36); MEAN CORPUSCULAR VOLUME 76 fL (80-99); MONOCYTES # (AUTO) 0.9 10^3/uL (0.0-1.0); MONOCYTES % (AUTO) 10 % (0-12); NEUTROPHILS # (AUTO) 6.3 10^3/uL (1.8-7.8); NEUTROPHILS % (AUTO) 71 % (42-75); PLATELET COUNT 328 10^3/uL (130-400); WHITE BLOOD COUNT 8.9 10^3/uL (4.3-11.0)
[2020-10-20 11:41] LABS: ALBUMIN 3.9 GM/DL (3.2-4.5); CHLORIDE 109 MMOL/L (98-107); POTASSIUM 3.9 MMOL/L (3.6-5.0); SODIUM 138 MMOL/L (135-145)
[2020-10-20 11:42] LABS: CALCIUM 8.6 MG/DL (8.5-10.1)
[2020-10-20 11:43] LABS: GLUCOSE 91 MG/DL (70-105); TOTAL PROTEIN 7.2 GM/DL (6.4-8.2)
[2020-10-20 11:45] LABS: BILIRUBIN,TOTAL 0.6 MG/DL (0.1-1.0); CARBON DIOXIDE 22 MMOL/L (21-32)
[2020-10-20 11:47] LABS: ALKALINE PHOSPHATASE 72 U/L (40-136); CREATININE SERUM 0.86 MG/DL (0.60-1.30); GFR ESTIMATED > 60
[2020-10-20 11:48] LABS: BUN/CREATININE RATIO 22
[2020-10-20 11:50] LABS: ALANINE AMINOTRANSFERASE 19 U/L (0-55)
--- NOTE | 2020-10-20 12:02 | Diagnostic Imaging Report ---
CLINICAL INDICATION: Patient with severe abdominal pain. EXAMS: 1: X-ray of the lumbar spine, three views. 2: X-ray of the abdomen, two supine views. COMPARISON: X-ray of the abdomen dated 07/02/2019. FINDINGS: Again seen spinal cord stimulator electrodes overlying the thoracolumbar region which are in stable position. There are three overlying the thoracolumbar region. One is seen at the upper T11 level, the other one at the mid T12 level, and the other one at the upper L1 level. There is no gross discontinuity or abnormality seen. There is no acute lumbar spine fracture or dislocation. There is loss of lordosis of the lumbar spine posture. There are surgical clips overlying the pelvis region anteriorly. Chronic compression deformities involving the L5 vertebra are seen. There is a nonobstructed bowel gas pattern. There is no significant stool load. There is no intra-abdominal free air. IMPRESSION: 1: There is no acute lumbar spine fracture or dislocation. 2: Grossly similar appearance of the spinal neurostimulator electrodes which are grossly unremarkable. Dictated by: Dictated on workstation # [id number]
[2020-10-20] MEDS ORDERED: CYCL10TA9 PO (13:10)
[2020-10-20] MEDS ORDERED: NAPR-1071 PO (13:10)
[2020-10-20 14:16] VITALS: BP 149/86
== END 2020-10-20 14:16 | disposition home or self-care (01) ==
LOC: EDUNIT# 10:57 → ER 10:59
DX: M62.838 Other muscle spasm (principal); G89.29 Other chronic pain; R10.31 Right lower quadrant pain; R10.32 Left lower quadrant pain; Z88.5 Allergy status to narcotic agent; Z88.1 Allergy status to other antibiotic agents; Z88.8 Allergy status to other drugs, medicaments and biological substances; Z82.61 Family history of arthritis; Z82.49 Family history of ischemic heart disease and other diseases of the circulatory system; Z83.3 Family history of diabetes mellitus
CPT/HCPCS: 36415; 72100; 74018; 80053; 85025